=== PATIENT | female | born 1945 | race Caucasian/White ===

== ENCOUNTER 2016-07-01 13:01 | Inpatient (IN) | payer MEDICARE, BC ==
[2016-07-01] VITALS (8 sets, daily range): BP systolic 127–151; BP diastolic 63–78; PULSE 70–187; RESP 16–18; TEMP 97.6–97.8; O2SAT 99–100
[~2016-07-01] VITALS: Ht 152.4 cm; Wt 49.4 kg
[2016-07-01] MEDS ORDERED: METOPROLOL TARTRATE 5 MG/5 ML VIAL IV PUSH ONE (13:15)
[2016-07-01] MEDS ORDERED: SODIUM CHLOR 0.9% 1000 ML INJ 1,000 ML IV ONE (13:30)
[2016-07-01] MEDS ORDERED: METOPROLOL TARTRATE 50 MG TAB PO ONE (13:30)
--- NOTE | 2016-07-01 13:49 | RADRPT ---
EXAM DATE/TIME: 07/01/2016 13:18 [facility] COMPARISON: No previous studies available for comparison. INDICATIONS : Chest pain. MEDICAL HISTORY : Chronic obstructive pulmonary disease. Congestive heart failure. SURGICAL HISTORY : Left lung mass surgery, not sure if it was cancer. ENCOUNTER: Initial ACUITY: 1 day PAIN SCORE: 10/10 LOCATION: Bilateral chest FINDINGS: Scoliosis and Allen rods are noted. The left lung is clear. Consolidative changes and pleural effusion are seen on the right. Cardiac silhouette is obscured. Abnormal chest, CT scan may be of benefit. CONCLUSION: Abnormal chest as described above. Jaspreet Marroquin MD FACR on July 01, 2016 at 13:30 Board Certified Radiologist. This report was verified electronically.
[2016-07-01 14:09] LABS: AUTOMATED NEUTROPHIL # 7.5 TH/MM3 (1.8-7.7); BASOPHIL % 0.3 % (0.0-2.0); EOSINOPHIL # 0.1 TH/MM3 (0-0.4); EOSINOPHIL % 0.6 % (0.0-4.0); HEMATOCRIT 41.8 % (35.0-46.0); HEMO FLAGS DIFF FINAL; LYMPH % 6.1 % (9.0-44.0); LYMPHOCYTE # 0.5 TH/MM3 (1.0-4.8); MEAN CELL VOLUME 87.9 FL (80.0-100.0); MEAN CORPUSCULAR HEMOGLOBIN 27.9 PG (27.0-34.0); MEAN CORPUSCULAR HGB CONC 31.7 % (32.0-36.0); MONO % 5.5 % (0.0-8.0); NEUT % 87.5 % (16.0-70.0); PLATELET COUNT 211 TH/MM3 (150-450); RED BLOOD COUNT 4.75 MIL/MM3 (4.00-5.30); RED CELL DISTRIBUTION WIDTH 16.7 % (11.6-17.2); WHITE BLOOD COUNT 8.5 TH/MM3 (4.0-11.0)
[2016-07-01 14:23] LABS: APTT (PATIENT) 23.8 SEC (24.3-30.1)
[2016-07-01 14:33] LABS: ANION GAP 10 MEQ/L (5-15); BICARBONATE 29.1 MEQ/L (21.0-32.0); BLOOD UREA NITROGEN 14 MG/DL (7-18); CHLORIDE 102 MEQ/L (98-107); GLOMERULAR FILTRATION RATE 116 ML/MIN (>89); MAGNESIUM 1.8 MG/DL (1.5-2.5); POTASSIUM 3.8 MEQ/L (3.5-5.1); SODIUM (NA) 141 MEQ/L (136-145)
[2016-07-01 14:36] LABS: CREATINE KINASE 131 U/L (26-192)
[2016-07-01 14:48] LABS: CKMB 5.2 NG/ML (0.5-3.6)
--- NOTE | 2016-07-01 15:36 | PD ---
HPI Chief Complaint: Cardiac Complaint Time Seen by Provider: 13:08 Travel History International Travel<30 days: No Contact w/Intl Traveler<30days: No Traveled to known affect area: No History of Present Illness HPI 70-year-old female came to the emergency room with history of chest pain that woke her up this morning. Chest pain continued and patient called EMS. When they arrived her heart rate was in 190s to 200. They identified her as in SVT and gave her 6 mg of adenosine followed by 12. This slowed the heart rate down to the 160 and at this point the rhythm seemed to be A. fib with RVR. She was given 20 mg of Cardizem just before they were pulling in. When patient arrived her heart rate was in 150s to 160s. She looked anxious and in distress. Complained of her chest hurting on the left side with no radiation. She has history of coronary artery disease and stents put in. Her last stent was about 6-7 years ago. A financial adviser and primary care are from out of town. Blood pressure was within normal range. Patient has history of atrial fibrillation and she is on Xarelto. [facility] Past Medical History Narrative Medical List of her past medical, surgical, social and family history was reviewed from the nursing note. Hx Anticoagulant Therapy: Yes Heart Rhythm Problems: Yes (ATRIAL FIB) Cardiac Catheterization: Yes (STENT X2) Cardiovascular Problems: Yes (AFIB) Hypertension: Yes Musculoskeletal: Yes (SCOLIOSIS) Past Surgical History Hysterectomy: Yes Social History Alcohol Use: No Tobacco Use: No Substance Use: No Allergies-Medications (Allergen,Severity, Reaction): Coded Allergies: Penicillin (Verified Allergy, Severe, 07/01/16) Comments List of her allergies reviewed from the nursing note. Reported Meds & Prescriptions Reported Meds & Active Scripts Active Reported Calcium (Hydrocodone-Acetaminophen) 5-325 mg Tab 1 Tab PO TID Lisinopril 20 Mg Tab 20 Mg PO DAILY Xarelto (Rivaroxaban) 20 Mg Tab 20 Mg PO DAILY Duragesic Patch 72 HR (Fentanyl) 75 Mcg/Hr Patch 75 Mcg T-DERMAL Q48HR Remove old patch when new one placed. Narrative Medication Awaiting for the nurse to do the med reconciliation. Review of Systems Except as stated in HPI: all other systems reviewed are Neg Physical Exam Narrative GENERAL: Awake, alert, anxious, looks older than her age, moderate distress SKIN: Focused skin assessment warm/dry. HEAD: Atraumatic. Normocephalic. EYES: Pupils equal and round. No scleral icterus. No injection or drainage. ENT: No nasal bleeding or discharge. Mucous membranes pink and moist. NECK: Trachea midline. No JVD. CARDIOVASCULAR: Irregularly irregular rhythm with tachycardia. No murmur appreciated. RESPIRATORY: No accessory muscle use. Clear to auscultation. Breath sounds equal bilaterally. GASTROINTESTINAL: Abdomen soft, non-tender, nondistended. Hepatic and splenic margins not palpable. MUSCULOSKELETAL: No obvious deformities. No clubbing. No cyanosis. No edema. NEUROLOGICAL: Awake and alert. No obvious cranial nerve deficits. Motor grossly within normal limits. Normal speech. PSYCHIATRIC: Appropriate mood and affect; insight and judgment normal. Data Data Last Documented VS Vital Signs Date Time Temp Pulse Resp B/P Pulse Ox O2 Delivery O2 Flow Rate FiO2 07/01/16 15:14 77 16 151/77 100 Room Air 07/01/16 13:05 97.6 Orders Electrocardiogram (07/01/16 13:09) Basic Metabolic Panel (Bmp) (07/01/16 13:09) Ckmb (Isoenzyme) Profile (07/01/16 13:09) Complete Blood Count With Diff (07/01/16 13:09) Magnesium (Mg) (07/01/16 13:09) Prothrombin Time / Inr (Pt) (07/01/16 13:09) Act Partial Throm Time (Ptt) (07/01/16 13:09) Troponin I (07/01/16 13:09) Chest, Single Ap (07/01/16 13:09) Ecg Monitoring (07/01/16 13:09) Bilateral Bp Monitoring (07/01/16 13:09) Iv Access Insert/Monitor (07/01/16 13:09) Oximetry (07/01/16 13:09) Oxygen Administration (07/01/16 13:09) Metoprolol Tartrate Inj (Lopressor Inj) (07/01/16 13:15) Sodium Chlor 0.9% 1000 Ml Inj (Ns 1000 M (07/01/16 13:30) Electrocardiogram (07/01/16 ) Metoprolol Tartrate (Lopressor) (07/01/16 13:30) CKMB (07/01/16 13:50) CKMB% (07/01/16 13:50) Ceftriaxone Inj (Rocephin Inj) (07/01/16 17:00) Azithromycin Inj (Zithromax Inj) (07/01/16 16:00) Ct Thorax/ Chest Wo Iv Contras (07/01/16 ) Admit Order (Ed Use Only) (07/01/16 15:41) Admit To Inpatient (07/01/16 ) Code Status (07/01/16 15:40) Vital Signs (Adult) Q4H (07/01/16 15:40) Activity Oob Ad Zuleika (07/01/16 15:40) Bedside Glucose BELTRAN.AC&HS (07/01/16 15:40) Safety Analyst / Telemetry .CONTINUOUS (07/01/16 15:40) Intake + Output BELTRAN.QSHIFT (07/01/16 15:40) ^ Notify Dr: Other (07/01/16 15:40) Diet Heart Healthy (07/01/16 Dinner) Sodium Chlor 0.9% 1000 Ml Inj (Ns 1000 M (07/01/16 16:00) Sodium Chloride 0.9% Flush (Ns Flush) (07/01/16 15:45) Sodium Chloride 0.9% Flush (Ns Flush) (07/01/16 21:00) Acetaminophen (Tylenol) (07/01/16 15:45) Ondansetron Inj (Zofran Inj) (07/01/16 15:45) Bisacodyl Supp (Dulcolax Supp) (07/01/16 15:45) Docusate Sodium (Colace) (07/01/16 18:00) Basic Metabolic Panel (Bmp) (07/02/16 06:00) Complete Blood Count With Diff (07/02/16 06:00) Creatine Kinase (Cpk) (07/01/16 15:40) Troponin I (07/01/16 15:40) Prothrombin Time / Inr (Pt) (07/02/16 06:00) Urinalysis - C+S If Indicated (07/01/16 15:40) Lipase (07/02/16 06:00) Hepatic Functional Panel (07/02/16 06:00) Resp Oxygen Vladimir C Titrat 1-4 L (07/01/16 ) Pt Request For Service (07/01/16 15:40) Case Management Consult (07/01/16 15:40) Enoxaparin Inj (Lovenox Inj) (07/01/16 16:00) Naloxone Inj (Narcan Inj) (07/01/16 15:45) Inpatient Certification (07/01/16 ) Labs Laboratory Tests Test 07/01/16 13:50 White Blood Count 8.5 TH/MM3 Red Blood Count 4.75 MIL/MM3 Hemoglobin 13.3 GM/DL Hematocrit 41.8 % Mean Corpuscular Volume 87.9 FL Mean Corpuscular Hemoglobin 27.9 PG Mean Corpuscular Hemoglobin 31.7 % Concent Red Cell Distribution Width 16.7 % Platelet Count 211 TH/MM3 Mean Platelet Volume 8.7 FL Neutrophils (%) (Auto) 87.5 % Lymphocytes (%) (Auto) 6.1 % Monocytes (%) (Auto) 5.5 % Eosinophils (%) (Auto) 0.6 % Basophils (%) (Auto) 0.3 % Neutrophils # (Auto) 7.5 TH/MM3 Lymphocytes # (Auto) 0.5 TH/MM3 Monocytes # (Auto) 0.5 TH/MM3 Eosinophils # (Auto) 0.1 TH/MM3 Basophils # (Auto) 0.0 TH/MM3 CBC Comment DIFF FINAL Differential Comment Prothrombin Time 11.0 SEC Prothromb Time International 1.0 RATIO Ratio Activated Partial 23.8 SEC Thromboplast Time Sodium Level 141 MEQ/L Potassium Level 3.8 MEQ/L Chloride Level 102 MEQ/L Carbon Dioxide Level 29.1 MEQ/L Anion Gap 10 MEQ/L Blood Urea Nitrogen 14 MG/DL Creatinine 0.52 MG/DL Estimat Glomerular Filtration 116 ML/MIN Rate Random Glucose 109 MG/DL Calcium Level 9.3 MG/DL Magnesium Level 1.8 MG/DL Total Creatine Kinase 131 U/L Creatine Kinase MB 5.2 NG/ML Troponin I LESS THAN 0.02 NG/ML MDM Medical Decision Making Medical Screen Exam Complete: Yes Emergency Medical Condition: Yes Medical Record Reviewed: Yes Interpretation(s) Twelve-lead EKG was reviewed by me. No complex tachycardia. A. fib with RVR. Right axis deviation, ST depression probably related to the rate, LVH. Heart rate of 186 bpm. Differential Diagnosis SVT, A. fib with RVR, ACS Narrative Course 3:30 PM blood test results of back and within acceptable limit. Patient was given 5 mg of Lopressor IV which converted her rhythm to normal sinus and slowed her down to 84 bpm. Repeat EKG showed normal sinus rhythm with right axis deviation with LVH, old lateral [place]. Heart rate of 84 bpm. I will admit her to the chest pain center at this point to rule out ACS and the troponin is negative. 3:42 PM chest x-ray was suggestive of left-sided pleural effusion versus consolidation and the radiologist recommended a CT scan. I have ordered the CT scan but I would prefer her to be admitted to the medical floor. Hospitalist has accepted the patient. Critical Care Narrative Aggregate critical care time was 45 minutes. Time to perform other separately billable procedures was not included in the critical care time. My time did not include minutes spent treating any other patients simultaneously or on activities that did not directly contribute to the patient's treatment. The services I provided to this patient were to treat and/or prevent clinically significant deterioration that could result in: A. fib with RVR, chest pain, chemical cardioversion I provided critical care services requiring my management, as noted below: Chart data review, documentation time, medication orders and management, vital sign assessments/reviewing monitor data, ordering and reviewing lab tests, ordering and interpreting/reviewing x-rays and diagnostic studies, care of the patient and discussion of the patient with the admitting physicians. Procedures EKG Prior to Arrival: Yes Diagnosis Primary Impression: Atrial fibrillation with RVR Additional Impression: Chest pain Qualified Code: R07.9 - Chest pain, unspecified type Admitting Information Admitting Physician Requests: Tad Simon MD Jul 01, 2016 15:36
[2016-07-01] MEDS ORDERED: SODIUM CHLORIDE 0.9% FLUSH 10 ML FLUSH IV FLUSH PRN (15:45)
[2016-07-01] MEDS ORDERED: BISACODYL 10 MG SUPP RECTAL PRN (15:45)
[2016-07-01] MEDS ORDERED: ACETAMINOPHEN 325 MG TAB PO PRN (15:45)
[2016-07-01] MEDS ORDERED: NALOXONE HCL 0.4 MG/ML AMP IV PRN (15:45)
--- NOTE | 2016-07-01 15:56 | HHI.HP ---
[facility] Non-Staff Admission Diagnosis A. skye with RVR, pleural effusion Diagnoses: Chief Complaint: Atypical Chest pain Travel History International Travel<30 Days: No Contact w/Intl Traveler <30 Da: No Traveled to Known Affected Are: No History of Present Illness This is a pleasant 70 y/o Female who came to ER brought in by EMS after the patient complaint of Atypical chest pain, she woke up in the morning because did not improved she called EMS, When they arrived her heart rate was in 190s to 200. They identified her as in SVT and gave her 6 mg of adenosine followed by 12. This slowed the heart rate down to the 160 and at this point The rhythm showed Atrial Fibrillation with RVR given Cardizem 20 mg IV the patient continue with heart rate in 150s associated Anxiety and distressed, Complained of her chest hurting on the left side with no radiation. has CAD status post PCI and Stent placement x 2, history of Atrial Fibrillation, Her last stent was about 6-7 years ago. She is on Xarelto. as per patient she started with Chest pain when she woke up the pain was Precordial pain, 9/10 in intensity, radiated to the posterior area of the head, lasted for 5 to 10 minutes but did not improved totally. at this time asymptomatic. seen in the presence of female nurse in Emergency Room. Review of Systems Cardiovascular: COMPLAINS OF: Chest pain Past Family Social History Past Medical History CAD status post PCI and Stent placement x 2. Atrial Fibrillation Hypertension OA. Chronic anticoagulation Past Surgical History ADEBAYO Spinal surgery Cholecystectomy PCI and Stent placement x 2 Reported Medications Reported Meds & Active Scripts Active Reported Hanna (Hydrocodone-Acetaminophen) 5-325 mg Tab 1 Tab PO TID Lisinopril 20 Mg Tab 20 Mg PO DAILY Xarelto (Rivaroxaban) 20 Mg Tab 20 Mg PO DAILY Duragesic Patch 72 HR (Fentanyl) 75 Mcg/Hr Patch 75 Mcg T-DERMAL Q48HR Remove old patch when new one placed. Allergies: Coded Allergies: Penicillin (Verified Allergy, Severe, 07/01/16) Active Ordered Medications Current Medications Medications (Trade) Dose Ordered Sig/Reji Route Start Time Stop Time Status Last Admin Ceftriaxone Sodium 1000 mg/ Sodium Chloride 100 ml @ 200 mls/hr Q24H IV 07/01/16 17:00 Azithromycin 500 mg/Sodium Chloride 250 ml @ 250 mls/hr Q24H IV 07/01/16 16:00 07/01/16 16:00 (NS 1000 ml Inj) 1,000 ml @ 75 mls/hr [id number] IV 07/01/16 16:00 07/01/16 16:00 (NS Flush) 2 ml UNSCH PRN IV FLUSH 07/01/16 15:45 (NS Flush) 2 ml BID IV FLUSH 07/01/16 21:00 (Tylenol) 650 mg Q4H PRN PO 07/01/16 15:45 (Zofran Inj) 4 mg Q6H PRN IVP 07/01/16 15:45 (Dulcolax Supp) 10 mg DAILY PRN RECTAL 07/01/16 15:45 (Colace) 100 mg Q12H PO 07/01/16 18:00 (Narcan Inj) 0.4 mg UNSCH PRN IV 07/01/16 15:45 (Duragesic 75 Mcg Patch.72 Hr) 1 patch Q72H T-DERMAL 07/01/16 18:00 (Prinivil) 20 mg DAILY PO 07/02/16 09:00 (Xarelto) 20 mg DAILY PO 07/02/16 09:00 (Mucinex Er) 600 mg BID PO 07/01/16 21:00 Family History Mother with Hypertension and CAD Father with Stroke at young age. Social History Lives in [facility] with her Daughter and Granddaughter Denies any toxic habit. Physical Exam Vital Signs Vital Signs Date Time Temp Pulse Resp B/P Pulse Ox O2 Delivery O2 Flow Rate FiO2 07/01/16 15:14 77 16 151/77 100 Room Air 07/01/16 13:37 18 100 Room Air 07/01/16 13:37 100 Room Air 07/01/16 13:05 97.6 187 18 127/72 100 Physical Exam GENERAL: Awake, alert, anxious, looks older than her age, moderate distress SKIN: Focused skin assessment warm/dry. HEAD: Atraumatic. Normocephalic. EYES: Pupils equal and round. No scleral icterus. No injection or drainage. ENT: No nasal bleeding or discharge. Mucous membranes pink and moist. NECK: Trachea midline. No JVD. CARDIOVASCULAR: Irregularly irregular rhythm with tachycardia. Diastolic murmur on Pulmonary valve RESPIRATORY: No accessory muscle use. Clear to auscultation. Breath sounds equal bilaterally. GASTROINTESTINAL: Abdomen soft, non-tender, nondistended. Hepatic and splenic margins not palpable. MUSCULOSKELETAL: No obvious deformities. No clubbing. No cyanosis. No edema. NEUROLOGICAL: Awake and alert. No obvious cranial nerve deficits. Motor grossly within normal limits. Normal speech. PSYCHIATRIC: Appropriate mood and affect; insight and judgment normal. Laboratory Laboratory Tests Test 07/01/16 13:50 White Blood Count 8.5 Red Blood Count 4.75 Hemoglobin 13.3 Hematocrit 41.8 Mean Corpuscular Volume 87.9 Mean Corpuscular Hemoglobin 27.9 Mean Corpuscular Hemoglobin 31.7 Concent Red Cell Distribution Width 16.7 Platelet Count 211 Mean Platelet Volume 8.7 Neutrophils (%) (Auto) 87.5 Lymphocytes (%) (Auto) 6.1 Monocytes (%) (Auto) 5.5 Eosinophils (%) (Auto) 0.6 Basophils (%) (Auto) 0.3 Neutrophils # (Auto) 7.5 Lymphocytes # (Auto) 0.5 Monocytes # (Auto) 0.5 Eosinophils # (Auto) 0.1 Basophils # (Auto) 0.0 CBC Comment DIFF FINAL Differential Comment Prothrombin Time 11.0 Prothromb Time International 1.0 Ratio Activated Partial 23.8 Thromboplast Time Sodium Level 141 Potassium Level 3.8 Chloride Level 102 Carbon Dioxide Level 29.1 Anion Gap 10 Blood Urea Nitrogen 14 Creatinine 0.52 Estimat Glomerular Filtration 116 Rate Random Glucose 109 Calcium Level 9.3 Magnesium Level 1.8 Total Creatine Kinase 131 Creatine Kinase MB 5.2 Troponin I LESS THAN 0.02 Result Diagram: 07/01/16 1350 07/01/16 1350 Imaging Last Impressions Chest CT 07/01/16 0000 Signed Impressions: Service Date/Time: Friday, July 01, 2016 16:33 - CONCLUSION: 1. There is pleural thickening and consolidation in the left apex which is probably on a chronic basis. I would recommend this patient undergo a CT scan in 6 months to ensure stability. 2. Severe rotatory scoliosis. Uri Marroquin MD Assessment and Plan Assessment and Plan 1. Atrial Fibrillation with RVR converted to sinus rhythm with Metoprolol IV then started by mouth, EKG showed normal sinus rhythm with right axis deviation with LVH, old lateral [place]. Heart rate of 84 bpm. recommended to be admitted to Cardiac floor and follow. asked for Echocardiogram. 2. Pneumonia and Pleural effusions on the left side started on Ceftriaxone and Azithromycin and followed by Emergency medicine specialist with CT Chest as recommended by chief specialist leed. 3. CAD status post PCI and Stent placement x 2. 4. Hypertension continue home medicines 5. OA. 6. Chronic anticoagulation 7.. Pneumonia probable lung consolidation on CT probable chronic will continue present care and follow her No signs of infection will continue antibiotics by now and follow DVT prophylaxis Xarelto As Always a pleasure to talk about this case with Emergency Medicine Specialist doctor Tad Brown her Input and recommendations Highly appreciated. Code Status Full Code. Discussed Condition With Patient and ER specialist. Physician Certification 2 Midnight Certification Type: Admission for Inpatient Services Order for Inpatient Services The services are ordered in accordance with Medicare regulations or non- Medicare payer requirements, as applicable. In the case of services not specified as inpatient-only, they are appropriately provided as inpatient services in accordance with the 2-midnight benchmark. Estimated LOS (days): 3 days is the estimated time the patient will need to remain in the hospital, assuming treatment plan goals are met and no additional complications. Post-Hospital Plan: Home Ismael Sumner MD Jul 01, 2016 15:56
[2016-07-01] MEDS ORDERED: ENOXAPARIN SODIUM 40 MG/0.4 ML SYRINGE SQ SCH (16:00)
[2016-07-01] MEDS: SODIUM CHLOR 0.9% 1000 ML INJ 1,000 ML IV SCH (16:00)
[2016-07-01] MEDS ORDERED: ACETAMINOPHEN 325 MG TAB PO ONE (16:00)
[2016-07-01] MEDS: AZITHROMYCIN INJ 500 MG in SODIUM CHLOR 0.9% 250 ML INJ 250 ML IV SCH (16:00)
[2016-07-01] MEDS ORDERED: FENT75T T-DERMAL (16:06)
[2016-07-01] MEDS ORDERED: NORC5TAB PO (16:06)
[2016-07-01] MEDS ORDERED: LISI-515 PO (16:06)
[2016-07-01] MEDS ORDERED: XARE20TA PO (16:06)
--- NOTE | 2016-07-01 16:45 | RADRPT ---
EXAM DATE/TIME: 07/01/2016 16:33 [facility] COMPARISON: No previous studies available for comparison. INDICATIONS : Abnormal chest x-ray. RADIATION DOSE: 4.61 CTDIvol (mGy) MEDICAL HISTORY : Hypertension. Atrial Fib. SURGICAL HISTORY : None. ENCOUNTER: Initial ACUITY: 1 day PAIN SCALE: 6/10 LOCATION: chest TECHNIQUE: Volumetric scanning of the chest was performed. Using automated exposure control and adjustment of t he mA and/or kV according to patient size, radiation dose was kept as low as reasonably achievable to obtain optimal diagnostic quality images. FINDINGS: The examination demonstrates a severe rotatory scoliosis. There are Allen rods in place. The right lung is clear. Examination of the left lung demonstrates pleural thickening and consolidation in the left lung apex. Followup CT imaging in 6 months to confirm stability is warranted. The lower lobe is clear. No signi ficant hilar or mediastinal adenopathy is seen. The upper abdomen is unremarkable. CONCLUSION: 1. There is pleural thickening and consolidation in the left apex which is probably on a chronic basi s. I would recommend this patient undergo a CT scan in 6 months to ensure stability. 2. Severe rotatory scoliosis. Uri Marroquin MD on July 01, 2016 at 16:42 Board Certified Radiologist. This report was verified electronically.
[2016-07-01] MEDS ORDERED: cloNIDine HCL 0.1 MG TAB PO ONE (18:00)
[2016-07-01] MEDS: DOCUSATE SODIUM 100 MG CAP PO SCH (18:38)
[2016-07-01] MEDS: cefTRIAXone INJ 1,000 MG in SODIUM CHLORIDE 0.9% INJ 100 ML IV SCH (18:38)
[2016-07-01] MEDS: ACETAMINOPHEN/HYDROcodone 325 MG/5 MG TAB PO PRN ×2 (19:00→22:55)
[2016-07-01] MEDS: guaiFENesin E.R. 600 MG TAB PO SCH (20:38)
[2016-07-01] MEDS: fentaNYL 75 MCG/HR PATCH T-DERMAL SCH (20:38)
[2016-07-01] MEDS: SODIUM CHLORIDE 0.9% FLUSH 10 ML FLUSH IV FLUSH SCH (20:38)
[2016-07-01] MEDS: RESP: ALBUTEROL 2.5 MG/IPRATROPIUM 0.5 MG NEB (SCH) NEB ×2 (20:53→23:30)
[2016-07-02] VITALS (11 sets, daily range): BP systolic 115–161; BP diastolic 59–74; PULSE 79–91; RESP 14–20; TEMP 97.5–98.3; O2SAT 93–98
[2016-07-02] MEDS: RESP: ALBUTEROL 2.5 MG/IPRATROPIUM 0.5 MG NEB (SCH) NEB ×5 (03:38→20:45)
[2016-07-02 03:56] LABS: AUTOMATED NEUTROPHIL # 3.8 TH/MM3 (1.8-7.7); BASOPHIL % 0.3 % (0.0-2.0); EOSINOPHIL # 0.1 TH/MM3 (0-0.4); EOSINOPHIL % 2.8 % (0.0-4.0); HEMATOCRIT 34.4 % (35.0-46.0); HEMO FLAGS DIFF FINAL; LYMPH % 14.4 % (9.0-44.0); LYMPHOCYTE # 0.8 TH/MM3 (1.0-4.8); MEAN CELL VOLUME 87.8 FL (80.0-100.0); MEAN CORPUSCULAR HEMOGLOBIN 28.3 PG (27.0-34.0); MEAN CORPUSCULAR HGB CONC 32.2 % (32.0-36.0); MONO % 10.6 % (0.0-8.0); NEUT % 71.9 % (16.0-70.0); PLATELET COUNT 194 TH/MM3 (150-450); RED BLOOD COUNT 3.92 MIL/MM3 (4.00-5.30); RED CELL DISTRIBUTION WIDTH 16.7 % (11.6-17.2); WHITE BLOOD COUNT 5.2 TH/MM3 (4.0-11.0)
[2016-07-02] MEDS: ACETAMINOPHEN/HYDROcodone 325 MG/5 MG TAB PO PRN ×3 (03:59→13:35)
[2016-07-02 04:08] LABS: PROTHROMBIN TIME - PATIENT 11.4 SEC (9.8-11.6)
[2016-07-02 04:27] LABS: BICARBONATE 28.6 MEQ/L (21.0-32.0); INDIRECT BILIRUBIN 0.3 MG/DL (0.0-0.8); POTASSIUM 3.4 MEQ/L (3.5-5.1); TOTAL BILIRUBIN ADULT 0.4 MG/DL (0.2-1.0)
[2016-07-02] MEDS: DOCUSATE SODIUM 100 MG CAP PO SCH ×2 (04:58→16:52)
[2016-07-02] MEDS: SODIUM CHLOR 0.9% 1000 ML INJ 1,000 ML IV SCH ×2 (05:01→20:20)
--- NOTE | 2016-07-02 08:27 | HHI.PR ---
Subjective Remarks This is a pleasant 70 y/o Female who came to ER brought in by EMS after the patient complaint of Atypical chest pain, she woke up in the morning because did not improved she called EMS, When they arrived her heart rate was in 190s to 200. They identified her as in SVT and gave her 6 mg of adenosine followed by 12. This slowed the heart rate down to the 160 and at this point The rhythm showed Atrial Fibrillation with RVR given Cardizem 20 mg IV the patient continue with heart rate in 150s associated Anxiety and distressed, Complained of her chest hurting on the left side with no radiation. has CAD status post PCI and Stent placement x 2, history of Atrial Fibrillation, Her last stent was about 6-7 years ago. She is on Xarelto. as per patient she started with Chest pain when she woke up the pain was Precordial pain, 9/10 in intensity, radiated to the posterior area of the head, lasted for 5 to 10 minutes but did not improved totally. 07/02: Seen in her bedroom, denies Chest pain, has some Nausea probable secondary to Pain medicine or Potassium but the patient states she has Nausea at home most of the time. No diarrhea or vomit Objective Vital Signs Date Time Temp Pulse Resp B/P Pulse Ox O2 Delivery O2 Flow Rate FiO2 07/02/16 08:03 93 21 07/02/16 04:00 98.1 79 18 115/63 96 07/02/16 00:00 97.5 81 20 161/74 94 07/01/16 21:00 Room Air 07/01/16 20:01 86 07/01/16 20:00 Nasal Cannula 2.00 07/01/16 20:00 97.7 74 18 142/78 99 07/01/16 19:43 Room Air 2.00 Nasal Cannula 07/01/16 18:37 73 07/01/16 18:27 97.8 73 18 146/63 100 07/01/16 17:31 70 16 143/75 100 Room Air 07/01/16 15:14 77 16 151/77 100 Room Air 07/01/16 13:37 18 100 Room Air 07/01/16 13:37 100 Room Air 07/01/16 13:05 97.6 187 18 127/72 100 I/O 07/01/16 07/01/16 07/01/16 07/02/164/17 4/4/17 07:00 15:00 23:00 07:00 15:00 23:00 Intake Total 683 ml 631 ml Balance 683 ml 631 ml Intake Oral 240 ml 0 ml IV Total 443 ml 631 ml # Voids 1 0 # Bowel Movements 1 0 Result Diagram: 07/02/16 0316 07/02/16 0316 Imaging Last Impressions Chest X-Ray 07/01/16 1309 Signed Impressions: Service Date/Time: Friday, July 01, 2016 13:18 - CONCLUSION: Abnormal chest as described above. Jaspreet Marroquin MD FACR Chest CT 07/01/16 0000 Signed Impressions: Service Date/Time: Friday, July 01, 2016 16:33 - CONCLUSION: 1. There is pleural thickening and consolidation in the left apex which is probably on a chronic basis. I would recommend this patient undergo a CT scan in 6 months to ensure stability. 2. Severe rotatory scoliosis. Uri Marroquin MD Procedures No procedures performed. Other Results Laboratory Tests Test 07/01/16 07/02/16 13:50 03:16 Activated Partial 23.8 SEC Thromboplast Time Magnesium Level 1.8 MG/DL Creatine Kinase MB 5.2 NG/ML White Blood Count 5.2 TH/MM3 Red Blood Count 3.92 MIL/MM3 Hemoglobin 11.1 GM/DL Hematocrit 34.4 % Mean Corpuscular Volume 87.8 FL Mean Corpuscular Hemoglobin 28.3 PG Mean Corpuscular Hemoglobin 32.2 % Concent Red Cell Distribution Width 16.7 % Platelet Count 194 TH/MM3 Mean Platelet Volume 8.3 FL Neutrophils (%) (Auto) 71.9 % Lymphocytes (%) (Auto) 14.4 % Monocytes (%) (Auto) 10.6 % Eosinophils (%) (Auto) 2.8 % Basophils (%) (Auto) 0.3 % Neutrophils # (Auto) 3.8 TH/MM3 Lymphocytes # (Auto) 0.8 TH/MM3 Monocytes # (Auto) 0.6 TH/MM3 Eosinophils # (Auto) 0.1 TH/MM3 Basophils # (Auto) 0.0 TH/MM3 CBC Comment DIFF FINAL Differential Comment Prothrombin Time 11.4 SEC Prothromb Time International 1.0 RATIO Ratio Sodium Level 144 MEQ/L Potassium Level 3.4 MEQ/L Chloride Level 108 MEQ/L Carbon Dioxide Level 28.6 MEQ/L Anion Gap 7 MEQ/L Blood Urea Nitrogen 16 MG/DL Creatinine 0.49 MG/DL Estimat Glomerular Filtration 124 ML/MIN Rate Random Glucose 90 MG/DL Calcium Level 8.4 MG/DL Total Bilirubin 0.4 MG/DL Direct Bilirubin 0.1 MG/DL Indirect Bilirubin 0.3 MG/DL Aspartate Amino Transf 11 U/L (AST/SGOT) Alanine Aminotransferase 13 U/L (ALT/SGPT) Alkaline Phosphatase 63 U/L Total Creatine Kinase 71 U/L Troponin I 0.12 NG/ML Total Protein 5.7 GM/DL Albumin 3.0 GM/DL Lipase 161 U/L Objective Remarks GENERAL: Awake, alert, No distress at this time. SKIN: Focused skin assessment warm/dry. HEAD: Atraumatic. Normocephalic. EYES: Pupils equal and round. No scleral icterus. No injection or drainage. ENT: No nasal bleeding or discharge. Mucous membranes pink and moist. NECK: Trachea midline. No JVD. CARDIOVASCULAR: Irregularly irregular rhythm. Systolic murmur on Pulmonary valve RESPIRATORY: No accessory muscle use. Clear to auscultation. Breath sounds equal bilaterally. GASTROINTESTINAL: Abdomen soft, non-tender, nondistended. Hepatic and splenic margins not palpable. MUSCULOSKELETAL: No obvious deformities. No clubbing. No cyanosis. No edema. NEUROLOGICAL: Awake and alert. No obvious cranial nerve deficits. Motor grossly within normal limits. Normal speech. PSYCHIATRIC: Appropriate mood and affect; insight and judgment normal. Medications and IVs Current Medications Medications (Trade) Dose Ordered Sig/Reji Route Start Time Stop Time Status Last Admin Ceftriaxone Sodium 1000 mg/ Sodium Chloride 100 ml @ 200 mls/hr Q24H IV 07/01/16 17:00 07/01/16 18:38 Azithromycin 500 mg/Sodium Chloride 250 ml @ 250 mls/hr Q24H IV 07/01/16 16:00 07/01/16 16:00 (NS 1000 ml Inj) 1,000 ml @ 75 mls/hr [id number] IV 07/01/16 16:00 07/02/16 05:01 (NS Flush) 2 ml UNSCH PRN IV FLUSH 07/01/16 15:45 (NS Flush) 2 ml BID IV FLUSH 07/01/16 21:00 07/01/16 20:38 (Tylenol) 650 mg Q4H PRN PO 07/01/16 15:45 (Zofran Inj) 4 mg Q6H PRN IVP 07/01/16 15:45 (Dulcolax Supp) 10 mg DAILY PRN RECTAL 07/01/16 15:45 (Colace) 100 mg Q12H PO 07/01/16 18:00 07/02/16 04:58 (Narcan Inj) 0.4 mg UNSCH PRN IV 07/01/16 15:45 (Duragesic 75 Mcg Patch.72 Hr) 1 patch Q72H T-DERMAL 07/01/16 18:00 07/01/16 20:38 (Prinivil) 20 mg DAILY PO 07/02/16 09:00 (Xarelto) 20 mg DAILY PO 07/02/16 09:00 (Mucinex Er) 600 mg BID PO 07/01/16 21:00 07/01/16 20:38 ([place] 5-325 Mg) 1 tab Q4H PRN PO 07/01/16 18:15 07/02/16 03:59 A/P Assessment and Plan 1. Atrial Fibrillation with RVR converted to sinus rhythm with Metoprolol IV then started by mouth, EKG showed normal sinus rhythm with right axis deviation with LVH, old lateral PA. Heart rate of 84 bpm at this time stable in sinus rhythm, Troponin elevation awaiting for Echocardiogram result also for Cardiology consult, this mild elevation in Troponin may be related to her Atrial Fibrillation with RVR from yesterday but may need Stress test by docket specialist will follow recommendations. continue present care. 2. Pneumonia and Pleural effusions on the left side started on Ceftriaxone and Azithromycin and followed by Emergency medicine specialist with CT Chest as recommended by coding compliance specialist. continue antibiotics at this time by now. 3. CAD status post PCI and Stent placement x 2. 4. Hypertension continue home medicines, mild uncontrol just received her anti- Hypertensives. 5. OA. 6. Chronic anticoagulation 7.. Pneumonia probable lung consolidation on CT probable chronic will continue present care and follow her No signs of infection will continue antibiotics by now and follow 8. Electrolyte derangement replaced and following. DVT prophylaxis Xarelto As Always a pleasure to talk about this case with Emergency Medicine Specialist doctor Tad Brown her Input and recommendations Highly appreciated. Code Status Full Code. Discharge Planning Expected in one to two days. Ismael Sumner MD Jul 02, 2016 08:27
[2016-07-02] MEDS ORDERED: POTASSIUM CHLORIDE 20 MEQ CONTROLLED RELEASE TAB PO ONE (08:30)
[2016-07-02] MEDS: RIVAROXABAN 20 MG TAB PO SCH (08:52)
[2016-07-02] MEDS: guaiFENesin E.R. 600 MG TAB PO SCH ×2 (08:52→20:23)
[2016-07-02] MEDS: LISINOPRIL 20 MG TAB PO SCH (08:52)
[2016-07-02] MEDS: SODIUM CHLORIDE 0.9% FLUSH 10 ML FLUSH IV FLUSH SCH ×2 (09:00→20:23)
[2016-07-02] MEDS: MAGNESIUM SULFATE 1 GM PREMIX 100 ML IV SCH ×2 (09:03→10:28)
--- NOTE | 2016-07-02 10:50 | EKG ---
Date Performed: 07/01/2016 Time Performed: 13:07:29 PTAGE: 70 years EKG: ATRIAL FIBRILLATION WITH RAPID VENTRICULAR RESPONSE MARKED RIGHT AXIS DEVIATION VOLTAGE CRI TERIA FOR LVH MARKED ST DEPRESSION, CONSIDER SUBENDOCARDIAL INJURY No prior for comparison. ABNORMAL ECG NO PREVIOUS TRACING DOCTOR: Dee Almanzar Interpretating Date/Time 07/02/2016 10:45:35
--- NOTE | 2016-07-02 10:50 | EKG ---
Date Performed: 07/01/2016 Time Performed: 13:30:08 PTAGE: 70 years EKG: Sinus rhythm WITH OCCASIONAL SUPRAVENTRICULAR PREMATURE COMPLEXES ARM LEADS REVERSED Compared to prior tracing, t he patient is no longer in atrial fibrillation. BORDERLINE ECG PREVIOUS TRACING : 07/01/2016 13.07 DOCTOR: Dee Almanzar Interpretating Date/Time 07/02/2016 10:46:02
--- NOTE | 2016-07-02 11:30 | MB ---
cc: LILI OJEDA DATE OF CONSULTATION: 07/02/2016 DATE OF : 1945 REASON FOR CONSULTATION Atrial fibrillation / Atypical chest pain. HISTORY OF PRESENT ILLNESS 70-year-old female with past medical history significant for atrial fibrillation on oral anticoagulation coronary artery disease status post PCI, hypertension, and chronic scoliosis, chronic back pain and COPD. Patient presented to the emergency department via EMS with complaints of right-sided chest discomfort with nausea and headaches. The patient reports she was in her usual state of health until yesterday when she could not get out of bed and had this right-sided chest discomfort with was worsened with palpation for which she called EMS. On evaluation by EMS her heart was in the 190-200 range. She was giving 6 mg and 12 mg of Adenosine. EKG in the emergency department revealed atrial fibrillation with RVR ST depressions in the lateral leads. IV Cardizem given with control rate/conversion to sinus rhythm. The patient has a history of CAD status post PCI around 6 to 7 years ago. She is followed in [place], [place]. She reports she has had a couple visits the emergency department with a typical chest pain which unremarkable workups in the past. She reports being compliant with medications. Currently she denies chest pain, shortness of breath, palpitations, syncope, lightheadedness, fevers, chills, nausea, vomiting, diarrhea. She still complains of a headache. REVIEW OF SYSTEMS Review of systems negative except for what is mentioned in HPI. PAST MEDICAL HISTORY 1. Coronary artery disease Status post PCI x2 2. Atrial fibrillation on chronic oral anticoagulation, hypertension, 3. Scoliosis 4. COPD. PAST SURGICAL HISTORY 1. Total abdominal hysterectomy 2. Spinal surgery. 3. Cholecystectomy. 4. Percutaneous coronary intervention HOME MEDICATIONS: 1. [place] 2. Lisinopril 20 mg p.o. daily 3. 20 mg p.o. daily, 4. fentanyl patch 5. Cardizem. ALLERGIES PENICILLIN FAMILY HISTORY Noncontributory. SOCIAL HISTORY Denies alcohol, illicit drug use or tobacco abuse. PHYSICAL EXAMINATION: VITAL SIGNS: Vital signs: Temperature 97.8, respiratory rate 1885, blood pressure 148/65, O2 sat 93% in room air. IN GENERAL: Generally awake, alert, oriented x3 in no acute distress. NECK: No JVD, no carotid bruits. CHEST: Tender to palpation on the right side. HEART: Regular rate and rhythm. No murmurs, rubs or gallops. LUNGS: Right lung respiratory rales. Left lung is clear. No wheezes or rhonchi or rales. ABDOMEN: Soft, nontender, nondistended. Positive bowel sounds EXTREMITIES: No cyanosis or edema. Pulses throughout. LABORATORY DATA CBC hemoglobin 11, hematocrit 34, platelet count 194, INR 1.0, sodium 144, potassium 3.4, BUN 60th creatinine 0.49, calcium 8.4. Troponin 0.02, 0.08 and 0.12. Total protein 5.7, albumin 3.0, lipase 161. Chest x-ray Right lung consolidation and patent and pleural effusion. CT CHEST Today with thickening and consolidation in the left apex. EKG the first EKG done in the emergency department shows atrial fibrillation with rapid ventricular response and ST depression in the lateral leads. Subsequently EKG shows normal sinus. ASSESSMENT/PLAN 70-year-old female with above history and findings presented with his fibrillation with RVR and atypical chest pain. She remains febrile and hemodynamically stable. She is back in sinus rhythm. Troponins minimally elevated likely secondary to demand ischemia. Unfortunately she does not receives her care in this [place] and we do not have full cardiovascular history. At this point I would recommend to get her cardiology records from [facility], including echocardiogram and left heart catheterization. Get a 2-D echocardiogram, continue cycling cardiac enzymes, continue oral anticoagulation and Cardizem. Incentive spirometry. Thank you for the opportunity to take part in the care of this patient Further therapy to be determined MD SHEILA Caal/antonia /9:35 AM /10:15 AM MAYA
[2016-07-02] MEDS ORDERED: MORPHINE SULFATE 4 MG/ML INJ IV PUSH ONE (13:45)
[2016-07-02] MEDS: AZITHROMYCIN INJ 500 MG in SODIUM CHLOR 0.9% 250 ML INJ 250 ML IV SCH (16:52)
[2016-07-02] MEDS: cefTRIAXone INJ 1,000 MG in SODIUM CHLORIDE 0.9% INJ 100 ML IV SCH (16:52)
[2016-07-02] MEDS: ACETAMINOPHEN/HYDROcodone 325 MG/10 MG TAB PO PRN ×2 (16:53→20:31)
[2016-07-03] VITALS (10 sets, daily range): BP systolic 160–184; BP diastolic 72–86; PULSE 82–93; RESP 16–18; TEMP 97.2–98.1; O2SAT 91–99
[2016-07-03] MEDS: ACETAMINOPHEN/HYDROcodone 325 MG/10 MG TAB PO PRN ×6 (00:11→21:16)
[2016-07-03] MEDS: RESP: ALBUTEROL 2.5 MG/IPRATROPIUM 0.5 MG NEB (SCH) NEB ×7 (01:27→23:36)
[2016-07-03] MEDS: DOCUSATE SODIUM 100 MG CAP PO SCH ×2 (05:10→16:56)
[2016-07-03] MEDS: ONDANSETRON HCL 4 MG/2 ML VIAL IVP PRN ×2 (08:29→16:56)
[2016-07-03] MEDS: METOCLOPRAMIDE HCL 10 MG TAB PO PRN (11:08)
[2016-07-03] MEDS: DILTIAZEM HCL 30 MG TAB PO SCH ×2 (12:03→16:57)
[2016-07-03] MEDS: guaiFENesin E.R. 600 MG TAB PO SCH ×2 (12:03→21:17)
[2016-07-03] MEDS: RIVAROXABAN 20 MG TAB PO SCH (12:03)
[2016-07-03] MEDS: LISINOPRIL 20 MG TAB PO SCH (12:03)
--- NOTE | 2016-07-03 13:29 | EC ---
Study Study Date:07/03/2016 STUDY CONCLUSIONS SUMMARY - Procedure narrative: Transthoracic echocardiography. Image quality was good. Scanning was performed from the parasternal, apical, and subcostal acoustic windows. - Left ventricle: The cavity size was normal. Wall thickness was at the upper limits of normal. Systolic function was normal. The estimated ejection fraction was in the range of 60% to 65%. Wall motion was normal; there were no regional wall motion abnormalities. - Mitral valve: Trace regurgitation. - Tricuspid valve: Trace regurgitation. - Pericardium, extracardiac: A trivial pericardial effusion was identified. If LV function is below 40, please consider prescribing an ACEI or ARB or document rationale for non-use. PROCEDURE DATA STUDY STATUS: Elective. Procedure: Transthoracic echocardiography. Image quality was good. Scanning was performed from the parasternal, apical, and subcostal acoustic windows. Study completion: The patient tolerated the procedure well. Transthoracic echocardiography. M-mode, complete 2D, complete spectral Doppler, and color Doppler. Height: Height: 60in. Weight: Weight: 110.8lb. Body mass index: BMI: 21.7kg/m^2. Body surface area: BSA: 1.45m^2. Patient status: Inpatient. CARDIAC ANATOMY LEFT VENTRICLE: The cavity size was normal. Wall thickness was at the upper limits of normal. Systolic function was normal. The estimated ejection fraction was in the range of 60% to 65%. Wall motion was normal; there were no regional wall motion abnormalities. AORTIC VALVE: Trileaflet; normal thickness leaflets. Doppler: Transvalvular velocity was within the normal range. There was no stenosis. No regurgitation. AORTA: Aortic root: The aortic root was normal in size. MITRAL VALVE: Structurally normal valve. Doppler: Transvalvular velocity was within the normal range. There was no evidence for stenosis. Trace regurgitation. Valve area by pressure half-time: 3.67cm^2. Indexed valve area by pressure half-time: 2.53cm^2/m^2. Peak gradient: 4mm Hg (D). LEFT ATRIUM: The atrium was normal in size. RIGHT VENTRICLE: The cavity size was normal. Wall thickness was normal. PULMONIC VALVE: Doppler: Transvalvular velocity was within the normal range. There was no evidence for stenosis. No regurgitation. TRICUSPID VALVE: Structurally normal valve. Doppler: Transvalvular velocity was within the normal range. Trace regurgitation. Peak gradient: 33mm Hg (D). PULMONARY ARTERY: The main pulmonary artery was normal-sized. Systolic pressure was within the normal range. RIGHT ATRIUM: The atrium was normal in size. PERICARDIUM: A trivial pericardial effusion was identified. SYSTEMIC VEINS: Inferior vena cava: The vessel was normal in size. Patient weight: 110.8lb _Ejection fraction:_ 65-75% _Fractional shortening:_ 32% up to 5Kg 5-11.5Kg 11.6-22.9Kg 23-45Kg 45-57Kg Aortic Root 7-13 <17 13-22 17-27 17-27 LA diam 6-13 <23 24-38 33-47 37-40 RVID 10-17 7-15 7-15 7-18 8-17 LVIDd 12-22 <32 24-38 33-47 37-40 LVPW 2-4 3-6 5-7 6-8 7-8 IVS 2-4 3-6 5-7 6-8 7-8 BASIC MEASUREMENTS ADULT NORMAL Aortic valve Leaflet separation 17 mm 15-26 Right ventricle RV internal dimension, ED, PLAX 23.6 mm 19-38 BASIC MEASUREMENTS ADULT NORMAL Left ventricle LV internal dimension, ED 44 mm 37-56 LV internal dimension, ES 22.2 mm Fractional shortening *50 % 29-45 LV posterior wall, ED 10 mm 6-11 Septal/posterior wall ratio, ED 0.86 Relative wall thickness, ED *0.45 <0.45 Volume, ED, Teichholz 87.7 ml Volume, ES, Teichholz 16.6 ml Ejection fraction, Teichholz 81.1 % 64-83 Stroke volume, Teichholz 71.1 ml Volume index, ED, Teichholz 60 ml/m^2 Volume index, ES, Teichholz 11 ml/m^2 Stroke index, Teichholz 49 ml/m^2 Wall mass 133.6 g Wall mass index 92.2 g/m^2 Mass/height 0.88 g/cm Ventricular septum Septal thickness, ED 8.58 mm Aortic valve Leaflet separation 17 mm 15-26 Aorta Root diameter, ED 30 mm 20-37 DOPPLER MEASUREMENTS ADULT NORMAL Main pulmonary artery Pressure, S 25 mm Hg =30 Aortic valve Peak velocity, S 115 cm/s Regurgitant velocity, ED 294 cm/s Regurgitant deceleration 1910 cm/s^2 Regurgitant pressure half-time 468 ms Regurgitant gradient, ED 35 mm Hg Mitral valve Peak E-wave velocity 106 cm/s Peak A-wave velocity 80.9 cm/s Pressure half-time 60 ms Peak gradient, D 4 mm Hg Peak E/A ratio 1.3 Valve area, pressure half-time 3.67 cm^2 Valve area index, pressure half-time 2.53 cm^2/m^2 Tricuspid valve Peak gradient, D 33 mm Hg Maximal inflow velocity 288 cm/s Regurgitant peak velocity 216 cm/s Peak RV-RA gradient, S 19 mm Hg Systemic veins Estimated CVP 10 mm Hg Right ventricle RV pressure, S 29 mm Hg <30 Pulmonic valve Peak velocity, S 96.4 cm/s LEGEND: Mean values are shown as u=mean value. Asterisk (*) marley values outside specified normal range. Prepared and signed by Adarsh Hardy [id number]
--- NOTE | 2016-07-03 13:30 | HHI.PR ---
Subjective Remarks This is a pleasant 70 y/o Female who came to ER brought in by EMS after the patient complaint of Atypical chest pain, she woke up in the morning because did not improved she called EMS, When they arrived her heart rate was in 190s to 200. They identified her as in SVT and gave her 6 mg of adenosine followed by 12. This slowed the heart rate down to the 160 and at this point The rhythm showed Atrial Fibrillation with RVR given Cardizem 20 mg IV the patient continue with heart rate in 150s associated Anxiety and distressed, Complained of her chest hurting on the left side with no radiation. has CAD status post PCI and Stent placement x 2, history of Atrial Fibrillation, Her last stent was about 6-7 years ago. She is on Xarelto. as per patient she started with Chest pain when she woke up the pain was Precordial pain, 9/10 in intensity, radiated to the posterior area of the head, lasted for 5 to 10 minutes but did not improved totally. 07/02: Seen in her bedroom, denies Chest pain, has some Nausea probable secondary to Pain medicine or Potassium but the patient states she has Nausea at home most of the time. No diarrhea or vomit 07/03: Stable in her bedroom, complaint of headache, recommended to reduce the dosages of narcotic medicines she asks, also states she has Migraine, visual specialist asking for medical records, also continue Cardiac enzymes, continue Oral anticoagulation, and Cardizem, Echocardiogram. Objective Vital Signs Date Time Temp Pulse Resp B/P Pulse Ox O2 Delivery O2 Flow Rate FiO2 07/03/16 08:42 95 Nasal Cannula 21 07/03/16 08:01 98.1 82 18 184/86 99 07/03/16 08:00 96 Room Air 21 07/03/16 08:00 82 07/03/16 04:00 97.6 86 16 166/72 97 07/03/16 01:28 98 07/03/16 00:00 97.7 88 18 175/80 91 07/02/16 20:56 88 07/02/16 20:15 98.3 91 20 132/59 95 07/02/16 20:00 98.3 91 20 132/59 95 07/02/16 20:00 Room Air 07/02/16 17:53 20 07/02/16 16:00 98.2 86 14 130/61 96 07/02/16 15:44 95 21 I/O 07/02/16 07/02/16 07/02/16 07/03/16 07/03/16 07/03/16 07:00 15:00 23:00 07:00 15:00 23:00 Intake Total 631 ml 960 ml 1491 ml 498 ml Output Total 300 ml Balance 631 ml 960 ml 1491 ml 198 ml Intake Oral 0 ml 960 ml IV Total 631 ml 1491 ml 498 ml Output Urine Total 300 ml # Voids 0 3 # Bowel Movements 0 0 1 Result Diagram: 07/02/16 0316 07/02/16 0316 Imaging Last Impressions Chest X-Ray 07/01/16 1309 Signed Impressions: Service Date/Time: Friday, July 01, 2016 13:18 - CONCLUSION: Abnormal chest as described above. Jaspreet Marroquin MD FACR Chest CT 07/01/16 0000 Signed Impressions: Service Date/Time: Friday, July 01, 2016 16:33 - CONCLUSION: 1. There is pleural thickening and consolidation in the left apex which is probably on a chronic basis. I would recommend this patient undergo a CT scan in 6 months to ensure stability. 2. Severe rotatory scoliosis. Uri Marroquin MD Procedures No procedures performed. Other Results Laboratory Tests Test 07/01/16 07/02/16 13:50 03:16 Activated Partial 23.8 SEC Thromboplast Time Magnesium Level 1.8 MG/DL Creatine Kinase MB 5.2 NG/ML White Blood Count 5.2 TH/MM3 Red Blood Count 3.92 MIL/MM3 Hemoglobin 11.1 GM/DL Hematocrit 34.4 % Mean Corpuscular Volume 87.8 FL Mean Corpuscular Hemoglobin 28.3 PG Mean Corpuscular Hemoglobin 32.2 % Concent Red Cell Distribution Width 16.7 % Platelet Count 194 TH/MM3 Mean Platelet Volume 8.3 FL Neutrophils (%) (Auto) 71.9 % Lymphocytes (%) (Auto) 14.4 % Monocytes (%) (Auto) 10.6 % Eosinophils (%) (Auto) 2.8 % Basophils (%) (Auto) 0.3 % Neutrophils # (Auto) 3.8 TH/MM3 Lymphocytes # (Auto) 0.8 TH/MM3 Monocytes # (Auto) 0.6 TH/MM3 Eosinophils # (Auto) 0.1 TH/MM3 Basophils # (Auto) 0.0 TH/MM3 CBC Comment DIFF FINAL Differential Comment Prothrombin Time 11.4 SEC Prothromb Time International 1.0 RATIO Ratio Sodium Level 144 MEQ/L Potassium Level 3.4 MEQ/L Chloride Level 108 MEQ/L Carbon Dioxide Level 28.6 MEQ/L Anion Gap 7 MEQ/L Blood Urea Nitrogen 16 MG/DL Creatinine 0.49 MG/DL Estimat Glomerular Filtration 124 ML/MIN Rate Random Glucose 90 MG/DL Calcium Level 8.4 MG/DL Total Bilirubin 0.4 MG/DL Direct Bilirubin 0.1 MG/DL Indirect Bilirubin 0.3 MG/DL Aspartate Amino Transf 11 U/L (AST/SGOT) Alanine Aminotransferase 13 U/L (ALT/SGPT) Alkaline Phosphatase 63 U/L Total Creatine Kinase 71 U/L Troponin I 0.12 NG/ML Total Protein 5.7 GM/DL Albumin 3.0 GM/DL Lipase 161 U/L Objective Remarks GENERAL: Awake, alert, No distress at this time. SKIN: Focused skin assessment warm/dry. HEAD: Atraumatic. Normocephalic. EYES: Pupils equal and round. No scleral icterus. No injection or drainage. ENT: No nasal bleeding or discharge. Mucous membranes pink and moist. NECK: Trachea midline. No JVD. CARDIOVASCULAR: Irregularly irregular rhythm. Systolic murmur on Pulmonary valve RESPIRATORY: No accessory muscle use. Clear to auscultation. Breath sounds equal bilaterally. GASTROINTESTINAL: Abdomen soft, non-tender, nondistended. Hepatic and splenic margins not palpable. MUSCULOSKELETAL: No obvious deformities. No clubbing. No cyanosis. No edema. NEUROLOGICAL: Awake and alert. No obvious cranial nerve deficits. Motor grossly within normal limits. Normal speech. PSYCHIATRIC: Appropriate mood and affect; insight and judgment normal. Medications and IVs Current Medications Medications (Trade) Dose Ordered Sig/Reji Route Start Time Stop Time Status Last Admin Ceftriaxone Sodium 1000 mg/ Sodium Chloride 100 ml @ 200 mls/hr Q24H IV 07/01/16 17:00 07/02/16 16:52 Azithromycin 500 mg/Sodium Chloride 250 ml @ 250 mls/hr Q24H IV 07/01/16 16:00 07/02/16 16:52 (NS 1000 ml Inj) 1,000 ml @ 75 mls/hr [id number] IV 07/01/16 16:00 07/02/16 20:20 (NS Flush) 2 ml UNSCH PRN IV FLUSH 07/01/16 15:45 (NS Flush) 2 ml BID IV FLUSH 07/01/16 21:00 07/02/16 20:23 (Tylenol) 650 mg Q4H PRN PO 07/01/16 15:45 (Zofran Inj) 4 mg Q6H PRN IVP 07/01/16 15:45 07/03/16 08:29 (Dulcolax Supp) 10 mg DAILY PRN RECTAL 07/01/16 15:45 (Colace) 100 mg Q12H PO 07/01/16 18:00 07/03/16 05:10 (Narcan Inj) 0.4 mg UNSCH PRN IV 07/01/16 15:45 (Duragesic 75 Mcg Patch.72 Hr) 1 patch Q72H T-DERMAL 07/01/16 18:00 07/01/16 20:38 (Prinivil) 20 mg DAILY PO 07/02/16 09:00 07/03/16 12:03 (Xarelto) 20 mg DAILY PO 07/02/16 09:00 07/03/16 12:03 (Mucinex Er) 600 mg BID PO 07/01/16 21:00 07/03/16 12:03 ([place] 10-325 Mg) 1 tab Q4H PRN PO 07/02/16 13:45 07/03/16 13:13 (Cardizem) 30 mg Q6HR PO 07/03/16 12:00 07/03/16 12:03 (Reglan) 10 mg ACHS PRN PO 07/03/16 10:15 07/03/16 11:08 A/P Assessment and Plan 1. Atrial Fibrillation with RVR converted to sinus rhythm with Metoprolol IV then started by mouth, EKG showed normal sinus rhythm with right axis deviation with LVH, old lateral [place]. Heart rate of 84 bpm at this time stable in sinus rhythm, Troponin elevation awaiting for Echocardiogram result also for Cardiology consult, this mild elevation in Troponin may be related to her Atrial Fibrillation with RVR visual specialist following appreciated assistance, asked for medical records, Echocardiogram EF 60-65%. continue Cardizem and Xarelto. 2. Pneumonia and Pleural effusions on the left side started on Ceftriaxone and Azithromycin and followed by Emergency medicine specialist with CT Chest as recommended by health insurance specialist. continue antibiotics at this time by now. will follow laboratory in am tomorrow if stable afebrile will discontinue antibiotics no need for further antibiotics. 3. CAD status post PCI and Stent placement x 2. 4. Hypertension continue home medicines, mild uncontrol just received her anti- Hypertensives. 5. OA. 6. Chronic anticoagulation 7. Electrolyte derangement replaced and following. DVT prophylaxis Xarelto Discussed with Patient in the room, asking for discharge probable for tomorrow. Called placed to he Daughter Miss Cassandra Garvin to the Phone number [phone] No Answer states the person do not accept calls at this time. Code Status Full Code. Discharge Planning Awaiting final by Cardiology to discharge Home. Ismael Sumner MD Jul 03, 2016 13:30
[2016-07-03] MEDS: AZITHROMYCIN INJ 500 MG in SODIUM CHLOR 0.9% 250 ML INJ 250 ML IV SCH (15:57)
[2016-07-03] MEDS: cefTRIAXone INJ 1,000 MG in SODIUM CHLORIDE 0.9% INJ 100 ML IV SCH (18:24)
[2016-07-03] MEDS: ACETAMIN 325 MG/BUTALBITAL 50 MG/CAFFEINE 40 MG TAB PO PRN (21:17)
[2016-07-03] MEDS: SODIUM CHLORIDE 0.9% FLUSH 10 ML FLUSH IV FLUSH SCH (21:18)
[2016-07-04] VITALS (9 sets, daily range): BP systolic 144–182; BP diastolic 62–92; PULSE 71–89; RESP 16–20; TEMP 97.5–98.2; O2SAT 95–98
[2016-07-04] MEDS: ACETAMINOPHEN/HYDROcodone 325 MG/10 MG TAB PO PRN ×4 (01:20→18:40)
[2016-07-04] MEDS: DILTIAZEM HCL 30 MG TAB PO SCH ×4 (01:20→18:39)
[2016-07-04] MEDS: RESP: ALBUTEROL 2.5 MG/IPRATROPIUM 0.5 MG NEB (SCH) NEB ×5 (03:57→20:00)
[2016-07-04] MEDS: DOCUSATE SODIUM 100 MG CAP PO SCH ×2 (05:32→18:00)
[2016-07-04 06:22] LABS: AUTOMATED NEUTROPHIL # 2.6 TH/MM3 (1.8-7.7); BASOPHIL % 0.7 % (0.0-2.0); EOSINOPHIL # 0.2 TH/MM3 (0-0.4); EOSINOPHIL % 4.8 % (0.0-4.0); HEMATOCRIT 34.7 % (35.0-46.0); HEMO FLAGS DIFF FINAL; LYMPH % 24.7 % (9.0-44.0); LYMPHOCYTE # 1.1 TH/MM3 (1.0-4.8); MEAN CELL VOLUME 87.5 FL (80.0-100.0); MEAN CORPUSCULAR HEMOGLOBIN 28.9 PG (27.0-34.0); MONO % 12.7 % (0.0-8.0); NEUT % 57.1 % (16.0-70.0); PLATELET COUNT 183 TH/MM3 (150-450); RED BLOOD COUNT 3.96 MIL/MM3 (4.00-5.30); RED CELL DISTRIBUTION WIDTH 16.5 % (11.6-17.2); WHITE BLOOD COUNT 4.5 TH/MM3 (4.0-11.0)
[2016-07-04 06:38] LABS: BICARBONATE 33.1 MEQ/L (21.0-32.0); MAGNESIUM 2.1 MG/DL (1.5-2.5)
[2016-07-04] MEDS: guaiFENesin E.R. 600 MG TAB PO SCH ×2 (08:37→20:45)
[2016-07-04] MEDS: LISINOPRIL 20 MG TAB PO SCH (08:37)
[2016-07-04] MEDS: ACETAMIN 325 MG/BUTALBITAL 50 MG/CAFFEINE 40 MG TAB PO PRN ×2 (08:37→20:44)
[2016-07-04] MEDS: RIVAROXABAN 20 MG TAB PO SCH (08:37)
[2016-07-04] MEDS: ONDANSETRON HCL 4 MG/2 ML VIAL IVP PRN ×2 (08:38→15:32)
[2016-07-04] MEDS ORDERED: DIATRIZOATE MEGLUM/DIATRIZOATE SOD 9 ML CUP PO ONE (13:00)
[2016-07-04] MEDS: PANTOPRAZOLE SODIUM 40 MG VIAL IV PUSH SCH ×2 (13:34→20:45)
--- NOTE | 2016-07-04 15:16 | HHI.PR ---
Subjective Remarks Patient complaining of abdominal pain. She said abdominal pain and she started about 2 days ago. She's initially was intermittent pronounced constant. Pain is located mid abdomen. She also feels nauseated but has not had any emesis. Deny taking any NSAIDs. Denied diarrhea or constipation. She remains afebrile. Deny any shortness of breathing or cough or any URI symptoms. Objective Vitals Vital Signs Date Time Temp Pulse Resp B/P Pulse Ox O2 Delivery O2 Flow Rate FiO2 07/04/16 12:05 97.9 80 18 159/77 96 07/04/16 11:48 95 21 07/04/16 08:38 97.9 71 18 161/76 96 07/04/16 04:00 97.5 80 18 169/75 97 158/62 07/04/16 01:00 164/92 07/04/16 00:00 97.7 88 18 171/72 98 07/03/16 20:00 Room Air 07/03/16 20:00 97.3 83 18 162/72 98 07/03/16 19:28 93 21 07/03/16 16:01 98.0 93 18 160/73 98 I/O 07/03/16 07/03/16 07/03/16 07/04/16 07/04/16 07/04/16 07:00 15:00 23:00 07:00 15:00 23:00 Intake Total 498 ml 600 ml 240 ml 120 ml Output Total 300 ml 4000 ml 850 ml 250 ml Balance 198 ml -3400 ml -610 ml -130 ml Intake Oral 600 ml 240 ml 120 ml IV Total 498 ml Output Urine Total 300 ml 4000 ml 850 ml 250 ml # Bowel Movements 1 0 0 0 Result Diagram: 07/04/16 0525 07/04/16 0525 Imaging Last Impressions Chest X-Ray 07/01/16 1309 Signed Impressions: Service Date/Time: Friday, July 01, 2016 13:18 - CONCLUSION: Abnormal chest as described above. Jaspreet Marroquin MD FACR Chest CT 07/01/16 0000 Signed Impressions: Service Date/Time: Friday, July 01, 2016 16:33 - CONCLUSION: 1. There is pleural thickening and consolidation in the left apex which is probably on a chronic basis. I would recommend this patient undergo a CT scan in 6 months to ensure stability. 2. Severe rotatory scoliosis. Uri Marroquin MD Objective Remarks GENERAL: in nad CARDIOVASCULAR: Regular rate and rhythm without murmurs, gallops, or rubs. RESPIRATORY: Breath sounds equal bilaterally. No accessory muscle use. GASTROINTESTINAL: Abdomen soft, nondistended, positive tenderness to palpation in the mid abdomen area. Negative for any peritoneal signs. Negative for any hepatosplenomegaly. MUSCULOSKELETAL: No cyanosis, or edema. BACK: Nontender without obvious deformity. No CVA tenderness. Medications and IVs Current Medications Metoprolol Tartrate 5 mg 5 mg ONCE ONCE IV PUSH Last administered on 07/01/16 13:15; Start 07/01/16 at 13:15; Stop 07/01/16 at 13:16; Status DC Sodium Chloride (NS 1000 ml Inj) 1,000 ml @ 999 mls/hr BOLUS ONCE IV Last administered on 07/01/16 13:30; Start 07/01/16 at 13:30; Stop 07/01/16 at 14:30; Status DC Metoprolol Tartrate 50 mg 50 mg ONCE ONCE PO Last administered on 07/01/16 13: 30; Start 07/01/16 at 13:30; Stop 07/01/16 at 13:31; Status DC Ceftriaxone Sodium 1000 mg/ Sodium Chloride 100 ml @ 200 mls/hr Q24H IV Last administered on 07/03/16 18:24; Start 07/01/16 at 17:00; Stop 07/04/16 at 12:11; Status DC Azithromycin 500 mg/Sodium Chloride 250 ml @ 250 mls/hr Q24H IV Last administered on 07/03/16 15:57; Start 07/01/16 at 16:00; Stop 07/04/16 at 12:11; Status DC Sodium Chloride (NS 1000 ml Inj) 1,000 ml @ 75 mls/hr [id number] IV Last administered on 07/02/16 20:20; Start 07/01/16 at 16:00 Sodium Chloride (NS Flush) 2 ml UNSCH PRN IV FLUSH FLUSH AFTER USING IV ACCESS ; Start 07/01/16 at 15:45 Sodium Chloride (NS Flush) 2 ml BID IV FLUSH Last administered on 07/02/16 20: 23; Start 07/01/16 at 21:00 Acetaminophen (Tylenol) 650 mg Q4H PRN PO TEMP > 100.4 Last administered on 07/03 15:59; Start 07/01/16 at 15:45 Ondansetron HCl (Zofran Inj) 4 mg Q6H PRN IVP NAUSEA OR VOMITING Last administered on 07/04/16 08:38; Start 07/01/16 at 15:45 Bisacodyl (Dulcolax Supp) 10 mg DAILY PRN RECTAL CONSTIPATION; Start 07/01/16 at 15:45 Docusate Sodium (Colace) 100 mg Q12H PO Last administered on 07/04/16 05:32; Start 07/01/16 at 18:00 Enoxaparin Sodium (Lovenox Inj) 40 mg Q24H SQ ; Start 07/01/16 at 16:00; Stop 07/01/16 at 16:40; Status DC Naloxone HCl (Narcan Inj) 0.4 mg UNSCH PRN IV SEE LABEL COMMENTS; Start at 15:45 Acetaminophen (Tylenol) 650 mg ONCE ONCE PO Last administered on 07/01/16 16: 00; Start 07/01/16 at 16:00; Stop 07/01/16 at 16:01; Status DC Fentanyl (Duragesic 75 Mcg Patch.72 Hr) 1 patch Q72H T-DERMAL Last administered on 07/01/16 20:38; Start 07/01/16 at 18:00 Lisinopril (Prinivil) 20 mg DAILY PO Last administered on 07/04/16 08:37; Start 07/02/16 at 09:00 Rivaroxaban (Xarelto) 20 mg DAILY PO Last administered on 07/04/16 08:37; Start 07/02/16 at 09:00 Albuterol/ Ipratropium (Duoneb Neb) 1 ampule Q4HR NEB NEB Last administered on 07/04/16 11:47; Start 07/01/16 at 20:00 Guaifenesin (Mucinex Er) 600 mg BID PO Last administered on 07/04/16 08:37; Start 07/01/16 at 21:00 Clonidine (Catapres) 0.1 mg ONCE ONCE PO ; Start 07/01/16 at 18:00; Stop at 18:06; Status DC Acetaminophen/ Hydrocodone Bitart ([place] 5-325 Mg) 1 tab Q4H PRN PO PAIN SCALE 4 TO 10 Last administered on 07/02/16 13:35; Start 07/01/16 at 18:15; Stop 07/02/16 at 13:40; Status DC Potassium Chloride 60 meq 60 meq ONCE ONCE PO Last administered on 07/02/16 09 :03; Start 07/02/16 at 08:30; Stop 07/02/16 at 08:40; Status DC Magnesium Sulfate/ Dextrose (Magnesium Sulfate 1 Gm Premix) 100 ml @ 100 mls/ hr Q1H IV Last administered on 07/02/16 10:28; Start 07/02/16 at 08:30; Stop 07/02/16 at 10:29; Status DC Acetaminophen/ Hydrocodone Bitart ([place] 10-325 Mg) 1 tab Q4H PRN PO PAIN SCALE 5 TO 10 Last administered on 07/04/16 11:25; Start 07/02/16 at 13:45 Morphine Sulfate (Morphine Inj) 2 mg ONCE ONCE IV PUSH Last administered on 14:47; Start 07/02/16 at 13:45; Stop 07/02/16 at 13:46; Status DC Diltiazem HCl (Cardizem) 30 mg Q6HR PO Last administered on 07/04/16 11:24; Start 07/03/16 at 12:00 Metoclopramide HCl (Reglan) 10 mg ACHS PRN PO Nausea and vomit Last administered on 07/03/16 11:08; Start 07/03/16 at 10:15 Acetaminophen/ Butalbital/ Caffeine (Fioricet 325-50-40) 1 tab Q6H PRN PO HEADACHE Last administered on 07/04/16 08:37; Start 07/03/16 at 19:00 Pantoprazole Sodium (Protonix Inj) 40 mg Q12HR IV PUSH Last administered on 07/04 13:34; Start 07/04/16 at 12:15 Diatrizoate Meglum/ Diatrizoate Sod ( Gastroview Liq) 18 ml ONCE ONCE PO Last administered on 07/04/16 13:31; Start 07/04/16 at 13:00; Stop 07/04/16 at 13: 01; Status DC A/P Assessment and Plan Abdominal pain with nausea -Started 2 days ago. Will get CT scan of the abdomen and pelvis with contrast. -Will add Protonix IV twice a day. Atrial Fibrillation with RVR converted to sinus rhythm - EKG showed normal sinus rhythm with right axis deviation with LVH, old lateral [place]. Echocardiogram EF 60-65%. Mild elevated troponin secondary to demand ischemia from the age of fibrillation with RVR. -Continue with Cardizem and Xarelto per trimming inspector. -Will transition to long-acting Cardizem tomorrow. Pleural thickening and consolidation in the left apex which is probably on a chronic basis. -Patient has no symptoms of pneumonia or any upper story symptoms. Will discontinue Rocephin and azithromycin and monitor off antibiotics. -Per radiologist recommend CT scan in 6 months to ensure stability. Patient is aware. CAD status post PCI and Stent placement x 2. -Home medication resumed. Hypertension continue home medicines -Patient on Cardizem, lisinopril -Uncontrolled. We will add amlodipine. Chronic anticoagulation -On Xarelto DVT prophylaxis Xarelto Discharge Planning Patient now complaining of abdominal pain for the past 2 days it has worsened. I will need to work this up. Pending CT scan. Marli Coombs MD Jul 04, 2016 15:16
[2016-07-04] MEDS ORDERED: IOHEXOL 350 MG/ML 10 ML VIAL (for RAD DIAG) IV ONE (17:39)
--- NOTE | 2016-07-04 18:11 | RADRPT ---
EXAM DATE/TIME: 07/04/2016 17:27 [facility] COMPARISON: No previous studies available for comparison. INDICATIONS : Diffuse abdominal pain. IV CONTRAST: 75 cc Omnipaque 350 (iohexol) IV ORAL CONTRAST: Prescribed oral contrast ingested. RADIATION DOSE: 9.96 CTDIvol (mGy) MEDICAL HISTORY : Cardiovascular disease. Hypertension. SURGICAL HISTORY : Hysterectomy. Spinal rods ENCOUNTER: Initial ACUITY: 1 day PAIN SCALE: 5/10 LOCATION: Diffuse abdomen/pelvis TECHNIQUE: Volumetric scanning of the abdomen and pelvis was performed. Using automated exposure control and ad justment of the mA and/or kV according to patient size, radiation dose was kept as low as reasonably achievable to obtain optimal diagnostic quality images. FINDINGS: CT Abdomen: The spleen, pancreas right kidney, adrenals are unremarkable. There is an approximate 4-5 mm nonobstructing stone in the left kidney. Chronic vascular calcifications are present involving th e aorta, iliac arteries without any significant stenosis or aneurysmal dilatations for technique. The re is no ureteral stone and there is no hydronephrosis on either side. There is slight ascites throug hout the abdomen and pelvis. There is no evidence for any appreciable pathological adenopathy, or bow el obstruction. Multiple simple cysts are present in the liver the largest measures 1.[address] pelvis: There is no evidence for mass, abscess formation, or any significant adenopathy within the pelvis. There is scoliosis with degenerative changes and postsurgical changes of the patient's spine . There is moderate amount of stool throughout the colon. CONCLUSION: Hepatic cysts, stool throughout the colon and slight ascites with a tiny nonobstructi ng stone in the left kidney. Regla Bunch MD on July 04, 2016 at 17:52 Board Certified Radiologist. This report was verified electronically.
[2016-07-04] MEDS: METOCLOPRAMIDE HCL 10 MG TAB PO PRN (18:39)
[2016-07-04] MEDS: fentaNYL 75 MCG/HR PATCH T-DERMAL SCH (18:40)
[2016-07-04] MEDS: SODIUM CHLORIDE 0.9% FLUSH 10 ML FLUSH IV FLUSH SCH (20:45)
[2016-07-05] VITALS (10 sets, daily range): BP systolic 110–166; BP diastolic 55–80; PULSE 76–103; RESP 16–20; TEMP 97.2–97.9; O2SAT 96–99
[2016-07-05] MEDS: ACETAMINOPHEN/HYDROcodone 325 MG/10 MG TAB PO PRN ×5 (00:51→20:53)
[2016-07-05] MEDS: DILTIAZEM HCL 30 MG TAB PO SCH ×5 (00:53→23:14)
[2016-07-05] MEDS: SODIUM CHLOR 0.9% 1000 ML INJ 1,000 ML IV SCH ×2 (00:55→12:22)
[2016-07-05] MEDS: RESP: ALBUTEROL 2.5 MG/IPRATROPIUM 0.5 MG NEB (SCH) NEB ×5 (03:48→16:23)
[2016-07-05] MEDS: DOCUSATE SODIUM 100 MG CAP PO SCH ×2 (05:18→16:54)
[2016-07-05 07:25] LABS: HEMATOCRIT 38.2 % (35.0-46.0); MEAN CELL VOLUME 88.5 FL (80.0-100.0); MEAN CORPUSCULAR HEMOGLOBIN 28.4 PG (27.0-34.0); MEAN CORPUSCULAR HGB CONC 32.1 % (32.0-36.0); PLATELET COUNT 140 TH/MM3 (150-450); RED BLOOD COUNT 4.31 MIL/MM3 (4.00-5.30); RED CELL DISTRIBUTION WIDTH 16.7 % (11.6-17.2); REVIEW FLAG FINAL; WHITE BLOOD COUNT 4.2 TH/MM3 (4.0-11.0)
[2016-07-05 07:34] LABS: ANION GAP 6 MEQ/L (5-15); BICARBONATE 32.8 MEQ/L (21.0-32.0); BLOOD UREA NITROGEN 12 MG/DL (7-18); CHLORIDE 101 MEQ/L (98-107); SODIUM (NA) 140 MEQ/L (136-145)
[2016-07-05 07:36] LABS: ALKALINE PHOSPHATASE 68 U/L (45-117); ALT (GPT) 17 U/L (10-53); AST (GOT) 11 U/L (15-37); GLOMERULAR FILTRATION RATE 127 ML/MIN (>89); TOTAL BILIRUBIN ADULT 0.2 MG/DL (0.2-1.0)
[2016-07-05 07:48] LABS: POTASSIUM 4.3 MEQ/L (3.5-5.1)
[2016-07-05] MEDS: PANTOPRAZOLE SODIUM 40 MG VIAL IV PUSH SCH ×2 (08:16→20:53)
[2016-07-05] MEDS: LISINOPRIL 20 MG TAB PO SCH (08:16)
[2016-07-05] MEDS: guaiFENesin E.R. 600 MG TAB PO SCH ×2 (08:16→20:53)
[2016-07-05] MEDS: RIVAROXABAN 20 MG TAB PO SCH (08:16)
[2016-07-05] MEDS: SODIUM CHLORIDE 0.9% FLUSH 10 ML FLUSH IV FLUSH SCH ×2 (08:22→20:54)
[2016-07-05] MEDS: ACETAMIN 325 MG/BUTALBITAL 50 MG/CAFFEINE 40 MG TAB PO PRN ×2 (09:40→23:14)
[2016-07-05] MEDS ORDERED: MINERAL OIL ENEMA 118 ML BTL RECTAL ONE (12:00)
[2016-07-05] MEDS: ONDANSETRON HCL 4 MG/2 ML VIAL IVP PRN (16:15)
--- NOTE | 2016-07-05 16:18 | HHI.PR ---
Subjective Remarks Follow-up for abdominal pain Patient stated that she continues abdominal pain but that has improved. She denies any nausea or vomiting and is tolerated by mouth intake. Patient does not know when she had a last bowel movement but she stated that she has not had a bowel movement since she was hospitalized. She stated that she does have a history of constipation. Patient remains afebrile. Objective Vitals Vital Signs Date Time Temp Pulse Resp B/P Pulse Ox O2 Delivery O2 Flow Rate FiO2 07/05/16 16:00 97.9 95 18 110/55 98 07/05/16 12:00 97.5 78 17 160/77 99 07/05/16 08:16 98 21 07/05/16 08:00 97.4 78 17 166/80 98 07/05/16 07:56 Room Air 07/05/16 07:56 84 07/05/16 04:02 97.6 76 16 125/56 96 07/05/16 00:00 97.4 78 16 154/80 99 07/04/16 20:00 98.2 89 16 144/69 98 07/04/16 20:00 Room Air I/O 07/04/16 07/04/16 07/04/16 07/05/16 07/05/16 07/05/16 07:00 15:00 23:00 07:00 15:00 23:00 Intake Total 120 ml 720 ml 160 ml Output Total 250 ml Balance -130 ml 720 ml 160 ml Intake Oral 120 ml 720 ml 160 ml Output Urine Total 250 ml # Voids 3 2 3 # Bowel Movements 0 0 Result Diagram: 07/05/16 0658 07/05/16 0658 Imaging Last Impressions Abdomen/Pelvis CT 07/04/16 0000 Signed Impressions: Service Date/Time: June 17:27 - CONCLUSION: Hepatic cysts, stool throughout the colon and slight ascites with a tiny nonobstructing stone in the left kidney. Regla Bunch MD Chest X-Ray 07/01/16 1309 Signed Impressions: Service Date/Time: Friday, July 01, 2016 13:18 - CONCLUSION: Abnormal chest as described above. Jaspreet Marroquin MD FACR Chest CT 07/01/16 0000 Signed Impressions: Service Date/Time: Friday, July 01, 2016 16:33 - CONCLUSION: 1. There is pleural thickening and consolidation in the left apex which is probably on a chronic basis. I would recommend this patient undergo a CT scan in 6 months to ensure stability. 2. Severe rotatory scoliosis. Uri Marroquin MD Objective Remarks GENERAL: in nad CARDIOVASCULAR: Regular rate and rhythm without murmurs, gallops, or rubs. RESPIRATORY: Breath sounds equal bilaterally. No accessory muscle use. GASTROINTESTINAL: Abdomen soft, nondistended, positive tenderness to palpation in the mid abdomen area. Negative for any peritoneal signs. Negative for any hepatosplenomegaly. MUSCULOSKELETAL: No cyanosis, or edema. BACK: Nontender without obvious deformity. No CVA tenderness. Medications and IVs Current Medications Metoprolol Tartrate 5 mg 5 mg ONCE ONCE IV PUSH Last administered on 07/01/16 13:15; Start 07/01/16 at 13:15; Stop 07/01/16 at 13:16; Status DC Sodium Chloride (NS 1000 ml Inj) 1,000 ml @ 999 mls/hr BOLUS ONCE IV Last administered on 07/01/16 13:30; Start 07/01/16 at 13:30; Stop 07/01/16 at 14:30; Status DC Metoprolol Tartrate 50 mg 50 mg ONCE ONCE PO Last administered on 07/01/16 13: 30; Start 07/01/16 at 13:30; Stop 07/01/16 at 13:31; Status DC Ceftriaxone Sodium 1000 mg/ Sodium Chloride 100 ml @ 200 mls/hr Q24H IV Last administered on 07/03/16 18:24; Start 07/01/16 at 17:00; Stop 07/04/16 at 12:11; Status DC Azithromycin 500 mg/Sodium Chloride 250 ml @ 250 mls/hr Q24H IV Last administered on 07/03/16 15:57; Start 07/01/16 at 16:00; Stop 07/04/16 at 12:11; Status DC Sodium Chloride (NS 1000 ml Inj) 1,000 ml @ 75 mls/hr [id number] IV Last administered on 07/05/16 12:22; Start 07/01/16 at 16:00 Sodium Chloride (NS Flush) 2 ml UNSCH PRN IV FLUSH FLUSH AFTER USING IV ACCESS ; Start 07/01/16 at 15:45 Sodium Chloride (NS Flush) 2 ml BID IV FLUSH Last administered on 07/02/16 20: 23; Start 07/01/16 at 21:00 Acetaminophen (Tylenol) 650 mg Q4H PRN PO TEMP > 100.4 Last administered on 07/03 15:59; Start 07/01/16 at 15:45 Ondansetron HCl (Zofran Inj) 4 mg Q6H PRN IVP NAUSEA OR VOMITING Last administered on 07/04/16 15:32; Start 07/01/16 at 15:45 Bisacodyl (Dulcolax Supp) 10 mg DAILY PRN RECTAL CONSTIPATION; Start 07/01/16 at 15:45 Docusate Sodium (Colace) 100 mg Q12H PO Last administered on 07/05/16 05:18; Start 07/01/16 at 18:00 Enoxaparin Sodium (Lovenox Inj) 40 mg Q24H SQ ; Start 07/01/16 at 16:00; Stop 07/01/16 at 16:40; Status DC Naloxone HCl (Narcan Inj) 0.4 mg UNSCH PRN IV SEE LABEL COMMENTS; Start at 15:45 Acetaminophen (Tylenol) 650 mg ONCE ONCE PO Last administered on 07/01/16 16: 00; Start 07/01/16 at 16:00; Stop 07/01/16 at 16:01; Status DC Fentanyl (Duragesic 75 Mcg Patch.72 Hr) 1 patch Q72H T-DERMAL Last administered on 07/04/16 18:40; Start 07/01/16 at 18:00 Lisinopril (Prinivil) 20 mg DAILY PO Last administered on 07/05/16 08:16; Start 07/02/16 at 09:00 Rivaroxaban (Xarelto) 20 mg DAILY PO Last administered on 07/05/16 08:16; Start 07/02/16 at 09:00 Albuterol/ Ipratropium (Duoneb Neb) 1 ampule Q4HR NEB NEB Last administered on 07/05/16 11:39; Start 07/01/16 at 20:00 Guaifenesin (Mucinex Er) 600 mg BID PO Last administered on 07/05/16 08:16; Start 07/01/16 at 21:00 Clonidine (Catapres) 0.1 mg ONCE ONCE PO ; Start 07/01/16 at 18:00; Stop at 18:06; Status DC Acetaminophen/ Hydrocodone Bitart ([place] 5-325 Mg) 1 tab Q4H PRN PO PAIN SCALE 4 TO 10 Last administered on 07/02/16 13:35; Start 07/01/16 at 18:15; Stop 07/02/16 at 13:40; Status DC Potassium Chloride 60 meq 60 meq ONCE ONCE PO Last administered on 07/02/16 09 :03; Start 07/02/16 at 08:30; Stop 07/02/16 at 08:40; Status DC Magnesium Sulfate/ Dextrose (Magnesium Sulfate 1 Gm Premix) 100 ml @ 100 mls/ hr Q1H IV Last administered on 07/02/16 10:28; Start 07/02/16 at 08:30; Stop 07/02/16 at 10:29; Status DC Acetaminophen/ Hydrocodone Bitart ([place] 10-325 Mg) 1 tab Q4H PRN PO PAIN SCALE 5 TO 10 Last administered on 07/05/16 11:29; Start 07/02/16 at 13:45 Morphine Sulfate (Morphine Inj) 2 mg ONCE ONCE IV PUSH Last administered on 14:47; Start 07/02/16 at 13:45; Stop 07/02/16 at 13:46; Status DC Diltiazem HCl (Cardizem) 30 mg Q6HR PO Last administered on 07/05/16 11:25; Start 07/03/16 at 12:00 Metoclopramide HCl (Reglan) 10 mg ACHS PRN PO Nausea and vomit Last administered on 07/04/16 18:39; Start 07/03/16 at 10:15 Acetaminophen/ Butalbital/ Caffeine (Fioricet 325-50-40) 1 tab Q6H PRN PO HEADACHE Last administered on 07/05/16 09:40; Start 07/03/16 at 19:00 Pantoprazole Sodium (Protonix Inj) 40 mg Q12HR IV PUSH Last administered on 07/05 08:16; Start 07/04/16 at 12:15 Diatrizoate Meglum/ Diatrizoate Sod ( Gastroview Liq) 18 ml ONCE ONCE PO Last administered on 07/04/16 13:31; Start 07/04/16 at 13:00; Stop 07/04/16 at 13: 01; Status DC Amlodipine Besylate (Norvasc) 10 mg DAILY PO Last administered on 07/05/16 08: 15; Start 07/04/16 at 15:15 Iohexol (Omnipaque 350 Inj) 75 ml STK-MED ONCE IV Last administered on 17:39; Start 07/04/16 at 17:39; Stop 07/04/16 at 17:40; Status DC Mineral Oil (Fleet Mineral Oil Enema) 118 ml ONCE ONCE RECTAL Last administered on 07/05/16 12:22; Start 07/05/16 at 12:00; Stop 07/05/16 at 12:01; Status DC A/P Assessment and Plan Abdominal pain with nausea -Improving. -Started [address] scan showed Hepatic cysts, stool throughout the colon and slight ascites with a tiny nonobstructing stone in the left kidney. -Cell most likely due to gastritis versus constipation. We'll try an enema. -Continue her Protonix. -We will need to continue to monitor with serial abdominal exam to assure improvement. Atrial Fibrillation with RVR converted to sinus rhythm - EKG showed normal sinus rhythm with right axis deviation with LVH, old lateral [place]. Echocardiogram EF 60-65%. Mild elevated troponin secondary to demand ischemia from the age of fibrillation with RVR. 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 Pleural thickening and consolidation in the left apex which is probably on a chronic basis. -Patient has no symptoms of pneumonia or any upper story symptoms. Will discontinue Rocephin and azithromycin and monitor off antibiotics. -Per radiologist recommend CT scan in 6 months to ensure stability. Patient is aware. CAD status post PCI and Stent placement x 2. -Home medication resumed. Hypertension continue home medicines -Patient on Cardizem, lisinopril -Continue with amlodipine. Chronic anticoagulation -On Xarelto DVT prophylaxis Xarelto Discharge Planning Some improvement with abdominal pain. We'll need to observe at least another day to assure improvement and abdominal pain. Marli Coombs MD Jul 05, 2016 16:17
[2016-07-06] VITALS (11 sets, daily range): BP systolic 129–167; BP diastolic 60–74; PULSE 75–100; RESP 18–20; TEMP 97.1–98.3; O2SAT 91–100
[2016-07-06] MEDS: ACETAMINOPHEN/HYDROcodone 325 MG/10 MG TAB PO PRN ×5 (01:08→21:29)
[2016-07-06] MEDS: SODIUM CHLOR 0.9% 1000 ML INJ 1,000 ML IV SCH (02:40)
[2016-07-06] MEDS: DILTIAZEM HCL 30 MG TAB PO SCH ×3 (05:22→17:12)
[2016-07-06] MEDS: DOCUSATE SODIUM 100 MG CAP PO SCH ×2 (05:22→17:13)
[2016-07-06 08:13] LABS: HEMATOCRIT 34.3 % (35.0-46.0); MEAN CELL VOLUME 88.2 FL (80.0-100.0); MEAN CORPUSCULAR HEMOGLOBIN 28.2 PG (27.0-34.0); PLATELET COUNT 181 TH/MM3 (150-450); RED BLOOD COUNT 3.89 MIL/MM3 (4.00-5.30); RED CELL DISTRIBUTION WIDTH 16.8 % (11.6-17.2); REVIEW FLAG FINAL; WHITE BLOOD COUNT 4.3 TH/MM3 (4.0-11.0)
[2016-07-06] MEDS: guaiFENesin E.R. 600 MG TAB PO SCH ×2 (08:14→21:29)
[2016-07-06] MEDS: LISINOPRIL 20 MG TAB PO SCH (08:14)
[2016-07-06] MEDS: PANTOPRAZOLE SOD 40 MG DELAYED RELEASE TAB PO SCH ×2 (08:14→21:29)
[2016-07-06] MEDS: RIVAROXABAN 20 MG TAB PO SCH (08:14)
[2016-07-06] MEDS: SODIUM CHLORIDE 0.9% FLUSH 10 ML FLUSH IV FLUSH SCH ×3 (08:15→21:00)
[2016-07-06 08:32] LABS: ALT (GPT) 15 U/L (10-53); ANION GAP 6 MEQ/L (5-15); AST (GOT) 7 U/L (15-37); BICARBONATE 32.3 MEQ/L (21.0-32.0); BLOOD UREA NITROGEN 16 MG/DL (7-18); CHLORIDE 103 MEQ/L (98-107); GLOMERULAR FILTRATION RATE 178 ML/MIN (>89); POTASSIUM 3.9 MEQ/L (3.5-5.1); SODIUM (NA) 141 MEQ/L (136-145)
[2016-07-06 08:35] LABS: ALKALINE PHOSPHATASE 72 U/L (45-117); TOTAL BILIRUBIN ADULT 0.2 MG/DL (0.2-1.0)
--- NOTE | 2016-07-06 12:40 | PD.CARD.PN ---
Subjective Subjective Remarks Complaints of abn pain Constipation Objective Medications Current Medications Medications (Trade) Dose Ordered Sig/Reji Route Start Time Stop Time Status Last Admin (NS 1000 ml Inj) 1,000 ml @ 75 mls/hr [id number] IV 07/01/16 16:00 07/06/16 02:40 (NS Flush) 2 ml UNSCH PRN IV FLUSH 07/01/16 15:45 (NS Flush) 2 ml BID IV FLUSH 07/01/16 21:00 07/05/16 20:54 (Tylenol) 650 mg Q4H PRN PO 07/01/16 15:45 07/03/16 15:59 (Zofran Inj) 4 mg Q6H PRN IVP 07/01/16 15:45 07/05/16 16:15 (Dulcolax Supp) 10 mg DAILY PRN RECTAL 07/01/16 15:45 (Colace) 100 mg Q12H PO 07/01/16 18:00 07/06/16 05:22 (Narcan Inj) 0.4 mg UNSCH PRN IV 07/01/16 15:45 (Duragesic 75 Mcg Patch.72 Hr) 1 patch Q72H T-DERMAL 07/01/16 18:00 07/04/16 18:40 (Prinivil) 20 mg DAILY PO 07/02/16 09:00 07/06/16 08:14 (Xarelto) 20 mg DAILY PO 07/02/16 09:00 07/06/16 08:14 (Mucinex Er) 600 mg BID PO 07/01/16 21:00 07/06/16 08:14 ([place] 10-325 Mg) 1 tab Q4H PRN PO 07/02/16 13:45 07/06/16 11:17 (Cardizem) 30 mg Q6HR PO 07/03/16 12:00 07/06/16 11:16 (Reglan) 10 mg ACHS PRN PO 07/03/16 10:15 07/04/16 18:39 (Fioricet 325-50-40) 1 tab Q6H PRN PO 07/03/16 19:00 07/05/16 23:14 (Norvasc) 10 mg DAILY PO 07/04/16 15:15 07/06/16 08:14 (Protonix) 40 mg BID PO 07/06/16 09:00 07/06/16 08:14 Vital Signs / I&O Vital Signs Date Time Temp Pulse Resp B/P Pulse Ox O2 Delivery O2 Flow Rate FiO2 07/06/16 12:00 97.8 100 18 138/64 100 07/06/16 08:24 94 21 07/06/16 08:10 Room Air 07/06/16 08:00 97.6 80 18 151/70 91 07/06/16 04:00 97.2 83 20 129/60 95 07/06/16 01:45 75 07/06/16 00:00 97.1 88 18 153/74 95 07/05/16 20:32 96 21 07/05/16 20:03 103 07/05/16 20:00 97.2 91 20 144/69 99 07/05/16 19:45 Room Air 07/05/16 16:00 97.9 95 18 110/55 98 I/O 07/05/16 07/05/16 07/05/16 07/06/16 07/06/16 07/06/16 07:00 15:00 23:00 07:00 15:00 23:00 Intake Total 720 ml 240 ml 100 ml Output Total 725 ml Balance 720 ml 240 ml -625 ml Intake Oral 720 ml 240 ml 100 ml Output Urine Total 725 ml # Voids 3 4 0 # Bowel Movements 0 0 Physical Exam GENERAL: Well-nourished, well-developed patient. SKIN: Warm and dry. HEAD: Normocephalic. EYES: No scleral icterus. No injection or drainage. NECK: Supple, trachea midline. No JVD or lymphadenopathy. CARDIOVASCULAR: Irr Irr without murmurs, gallops, or rubs. RESPIRATORY: Breath sounds equal bilaterally. No accessory muscle use. GASTROINTESTINAL: Abdomen soft, non-tender, nondistended. EXTREMITIES: No cyanosis, or edema. NEUROLOGICAL: Awake, alert, and oriented x 3. Non-focal. Laboratory Laboratory Tests Test 07/06/16 07:30 White Blood Count 4.3 TH/MM3 Red Blood Count 3.89 MIL/MM3 Hemoglobin 11.0 GM/DL Hematocrit 34.3 % Mean Corpuscular Volume 88.2 FL Mean Corpuscular Hemoglobin 28.2 PG Mean Corpuscular Hemoglobin 32.0 % Concent Red Cell Distribution Width 16.8 % Platelet Count 181 TH/MM3 Mean Platelet Volume 8.2 FL Sodium Level 141 MEQ/L Potassium Level 3.9 MEQ/L Chloride Level 103 MEQ/L Carbon Dioxide Level 32.3 MEQ/L Anion Gap 6 MEQ/L Blood Urea Nitrogen 16 MG/DL Creatinine 0.36 MG/DL Estimat Glomerular Filtration 178 ML/MIN Rate Random Glucose 92 MG/DL Calcium Level 8.4 MG/DL Total Bilirubin 0.2 MG/DL Aspartate Amino Transf 7 U/L (AST/SGOT) Alanine Aminotransferase 15 U/L (ALT/SGPT) Alkaline Phosphatase 72 U/L Total Protein 5.3 GM/DL Albumin 2.9 GM/DL Imaging Last Impressions Abdomen/Pelvis CT 07/04/16 0000 Signed Impressions: Service Date/Time: June 17:27 - CONCLUSION: Hepatic cysts, stool throughout the colon and slight ascites with a tiny nonobstructing stone in the left kidney. Regla Bunch MD Chest X-Ray 07/01/16 1309 Signed Impressions: Service Date/Time: Friday, July 01, 2016 13:18 - CONCLUSION: Abnormal chest as described above. Jaspreet Marroquin MD FACR Chest CT 07/01/16 0000 Signed Impressions: Service Date/Time: Friday, July 01, 2016 16:33 - CONCLUSION: 1. There is pleural thickening and consolidation in the left apex which is probably on a chronic basis. I would recommend this patient undergo a CT scan in 6 months to ensure stability. 2. Severe rotatory scoliosis. Uri Marroquin MD Assessment and Plan Problem List: (1) Chest pain Assessment and Plan: Atypical chest pain Atrial Fibrillation with RVR converted to sinus rhythm. Continue OAC with Xarelto Continue Cardizem. Cont home medications for CAD (2) Atrial fibrillation with RVR Problem Qualifiers (1) Chest pain: Qualified Code: R07.9 - Chest pain, unspecified type Zac Membreno MD Jul 06, 2016 12:40
--- NOTE | 2016-07-06 14:34 | HHI.PR ---
Subjective Remarks patient c/o CP 1hr after eating food. Different positions makes it worse. Denied any SOB or palpitations. Denied any N/V. abdominal pain improving. remains afebrile. Objective Vitals Vital Signs Date Time Temp Pulse Resp B/P Pulse Ox O2 Delivery O2 Flow Rate FiO2 07/06/16 12:00 97.8 100 18 138/64 100 07/06/16 08:24 94 21 07/06/16 08:10 Room Air 07/06/16 08:00 97.6 80 18 151/70 91 07/06/16 04:00 97.2 83 20 129/60 95 07/06/16 01:45 75 07/06/16 00:00 97.1 88 18 153/74 95 07/05/16 20:32 96 21 07/05/16 20:03 103 07/05/16 20:00 97.2 91 20 144/69 99 07/05/16 19:45 Room Air 07/05/16 16:00 97.9 95 18 110/55 98 I/O 07/05/16 07/05/16 07/05/16 07/06/16 07/06/16 07/06/16 07:00 15:00 23:00 07:00 15:00 23:00 Intake Total 720 ml 240 ml 100 ml Output Total 725 ml Balance 720 ml 240 ml -625 ml Intake Oral 720 ml 240 ml 100 ml Output Urine Total 725 ml # Voids 3 4 0 # Bowel Movements 0 0 Result Diagram: 07/06/16 0730 07/06/16 0730 Objective Remarks GENERAL: in nad CARDIOVASCULAR: Regular rate and rhythm without murmurs, gallops, or rubs. + TTP on chest that reproduce the pain. RESPIRATORY: Breath sounds equal bilaterally. No accessory muscle use. GASTROINTESTINAL: Abdomen soft, nondistended, positive tenderness to palpation in the mid abdomen area that improved. Negative for any peritoneal signs. Negative for any hepatosplenomegaly. MUSCULOSKELETAL: No cyanosis, or edema. BACK: Nontender without obvious deformity. No CVA tenderness. Medications and IVs Current Medications Metoprolol Tartrate 5 mg 5 mg ONCE ONCE IV PUSH Last administered on 07/01/16t 13:15; Start 07/01/16 at 13:15; Stop 07/01/16 at 13:16; Status DC Sodium Chloride (NS 1000 ml Inj) 1,000 ml @ 999 mls/hr BOLUS ONCE IV Last administered on 07/01/16 13:30; Start 07/01/16 at 13:30; Stop 07/01/16 at 14:30; Status DC Metoprolol Tartrate 50 mg 50 mg ONCE ONCE PO Last administered on 07/01/16 13: 30; Start 07/01/16 at 13:30; Stop 07/01/16 at 13:31; Status DC Ceftriaxone Sodium 1000 mg/ Sodium Chloride 100 ml @ 200 mls/hr Q24H IV Last administered on 07/03/16 18:24; Start 07/01/16 at 17:00; Stop 07/04/16 at 12:11; Status DC Azithromycin 500 mg/Sodium Chloride 250 ml @ 250 mls/hr Q24H IV Last administered on 07/03/16 15:57; Start 07/01/16 at 16:00; Stop 07/04/16 at 12:11; Status DC Sodium Chloride (NS 1000 ml Inj) 1,000 ml @ 75 mls/hr [id number] IV Last administered on 07/06/16 02:40; Start 07/01/16 at 16:00 Sodium Chloride (NS Flush) 2 ml UNSCH PRN IV FLUSH FLUSH AFTER USING IV ACCESS ; Start 07/01/16 at 15:45 Sodium Chloride (NS Flush) 2 ml BID IV FLUSH Last administered on 07/05/16 20: 54; Start 07/01/16 at 21:00 Acetaminophen (Tylenol) 650 mg Q4H PRN PO TEMP > 100.4 Last administered on 07/03 15:59; Start 07/01/16 at 15:45 Ondansetron HCl (Zofran Inj) 4 mg Q6H PRN IVP NAUSEA OR VOMITING Last administered on 07/05/16 16:15; Start 07/01/16 at 15:45 Bisacodyl (Dulcolax Supp) 10 mg DAILY PRN RECTAL CONSTIPATION; Start 07/01/16 at 15:45 Docusate Sodium (Colace) 100 mg Q12H PO Last administered on 07/06/16 05:22; Start 07/01/16 at 18:00 Enoxaparin Sodium (Lovenox Inj) 40 mg Q24H SQ ; Start 07/01/16 at 16:00; Stop 07/01/16 at 16:40; Status DC Naloxone HCl (Narcan Inj) 0.4 mg UNSCH PRN IV SEE LABEL COMMENTS; Start at 15:45 Acetaminophen (Tylenol) 650 mg ONCE ONCE PO Last administered on 07/01/16 16: 00; Start 07/01/16 at 16:00; Stop 07/01/16 at 16:01; Status DC Fentanyl (Duragesic 75 Mcg Patch.72 Hr) 1 patch Q72H T-DERMAL Last administered on 07/04/16 18:40; Start 07/01/16 at 18:00 Lisinopril (Prinivil) 20 mg DAILY PO Last administered on 07/06/16 08:14; Start 07/02/16 at 09:00 Rivaroxaban (Xarelto) 20 mg DAILY PO Last administered on 07/06/16 08:14; Start 07/02/16 at 09:00 Albuterol/ Ipratropium (Duoneb Neb) 1 ampule Q4HR NEB NEB Last administered on 07/05/16 16:23; Start 07/01/16 at 20:00; Stop 07/05/16 at 20:00; Status DC Guaifenesin (Mucinex Er) 600 mg BID PO Last administered on 07/06/16 08:14; Start 07/01/16 at 21:00 Clonidine (Catapres) 0.1 mg ONCE ONCE PO ; Start 07/01/16 at 18:00; Stop at 18:06; Status DC Acetaminophen/ Hydrocodone Bitart ([place] 5-325 Mg) 1 tab Q4H PRN PO PAIN SCALE 4 TO 10 Last administered on 07/02/16 13:35; Start 07/01/16 at 18:15; Stop 07/02/16 at 13:40; Status DC Potassium Chloride 60 meq 60 meq ONCE ONCE PO Last administered on 07/02/16 09 :03; Start 07/02/16 at 08:30; Stop 07/02/16 at 08:40; Status DC Magnesium Sulfate/ Dextrose (Magnesium Sulfate 1 Gm Premix) 100 ml @ 100 mls/ hr Q1H IV Last administered on 07/02/16 10:28; Start 07/02/16 at 08:30; Stop 07/02/16 at 10:29; Status DC Acetaminophen/ Hydrocodone Bitart ([place] 10-325 Mg) 1 tab Q4H PRN PO PAIN SCALE 5 TO 10 Last administered on 07/06/16 11:17; Start 07/02/16 at 13:45 Morphine Sulfate (Morphine Inj) 2 mg ONCE ONCE IV PUSH Last administered on 14:47; Start 07/02/16 at 13:45; Stop 07/02/16 at 13:46; Status DC Diltiazem HCl (Cardizem) 30 mg Q6HR PO Last administered on 07/06/16 11:16; Start 07/03/16 at 12:00 Metoclopramide HCl (Reglan) 10 mg ACHS PRN PO Nausea and vomit Last administered on 07/04/16 18:39; Start 07/03/16 at 10:15 Acetaminophen/ Butalbital/ Caffeine (Fioricet 325-50-40) 1 tab Q6H PRN PO HEADACHE Last administered on 07/05/16 23:14; Start 07/03/16 at 19:00 Pantoprazole Sodium (Protonix Inj) 40 mg Q12HR IV PUSH Last administered on 07/05 20:53; Start 07/04/16 at 12:15; Stop 07/06/16 at 07:47; Status DC Diatrizoate Meglum/ Diatrizoate Sod ( Gastroview Liq) 18 ml ONCE ONCE PO Last administered on 07/04/16 13:31; Start 07/04/16 at 13:00; Stop 07/04/16 at 13: 01; Status DC Amlodipine Besylate (Norvasc) 10 mg DAILY PO Last administered on 07/06/16 08: 14; Start 07/04/16 at 15:15 Iohexol (Omnipaque 350 Inj) 75 ml STK-MED ONCE IV Last administered on 17:39; Start 07/04/16 at 17:39; Stop 07/04/16 at 17:40; Status DC Mineral Oil (Fleet Mineral Oil Enema) 118 ml ONCE ONCE RECTAL Last administered on 07/05/16 12:22; Start 07/05/16 at 12:00; Stop 07/05/16 at 12:01; Status DC Pantoprazole Sodium (Protonix) 40 mg BID PO Last administered on 07/06/16t 08:14 ; Start 07/06/16 at 09:00 Sodium Biphosphate/ Sodium Phosphate (Fleets Enema (Adult)) 133 ml ONCE ONCE RECTAL ; Start 07/06/16 at 14:45; Stop 07/06/16 at 14:46; Status DC A/P Assessment and Plan Abdominal pain -Improving. CT scan showed Hepatic cysts, stool throughout the colon and slight ascites with a tiny nonobstructing stone in the left kidney. -Most likely due to gastritis versus constipation. -Continue her Protonix. -We will need to continue to monitor with serial abdominal exam to assure improvement but drastic improvement. Chest pain -atypical and cp reproducible with palpitations. -maybe due to costochondritis since it is reproducible vs GERD -EKG shows no ST waves changes. -will get troponin. Atrial Fibrillation with RVR converted to sinus rhythm - EKG showed normal sinus rhythm with right axis deviation with LVH, old lateral [place]. Echocardiogram EF 60-65%. Mild elevated troponin secondary to demand ischemia from the age of fibrillation with RVR. -Continue with Cardizem and Xarelto per drop forger helper. Pleural thickening and consolidation in the left apex which is probably on a chronic basis. -Patient has no symptoms of pneumonia or any upper story symptoms. Will discontinue Rocephin and azithromycin and monitor off antibiotics. -Per radiologist recommend CT scan in 6 months to ensure stability. Patient is aware. CAD status post PCI and Stent placement x 2. -Home medication resumed. Hypertension continue home medicines -Patient on Cardizem, lisinopril -Continue with amlodipine. Chronic anticoagulation -On Xarelto DVT prophylaxis Xarelto Discharge Planning patient now c/o CP and abdominal pain improving and she continues to do well. if work negative anticipating dc tomorrow. Marli Coombs MD Jul 06, 2016 14:34
[2016-07-06] MEDS ORDERED: SOD PHOSPHATE/SOD BIPHOSPHATE (ADULT) ENEMA 133ML RECTAL ONE (14:45)
--- NOTE | 2016-07-06 14:46 | EKG ---
Date Performed: 07/06/2016 Time Performed: 09:38:04 PTAGE: 70 years EKG: Sinus rhythm Rightward axis Anterior T wave changes are nonspecific Compared to prior tracing no significant buck ge Borderline ECG PREVIOUS TRACING : 07/01/2016 13.30 DOCTOR: García Anderson Interpretating Date/Time 07/06/2016 14:42:44
[2016-07-06 19:21] LABS: ANION GAP 4 MEQ/L (5-15); BICARBONATE 34.2 MEQ/L (21.0-32.0); BLOOD UREA NITROGEN 17 MG/DL (7-18); CHLORIDE 99 MEQ/L (98-107); GLOMERULAR FILTRATION RATE 134 ML/MIN (>89); SODIUM (NA) 137 MEQ/L (136-145)
[2016-07-06 19:48] LABS: HEMATOCRIT 38.1 % (35.0-46.0); HEMO FLAGS AUTO DIFF; MEAN CELL VOLUME 87.6 FL (80.0-100.0); MEAN CORPUSCULAR HEMOGLOBIN 29.3 PG (27.0-34.0); MEAN CORPUSCULAR HGB CONC 33.4 % (32.0-36.0); PLATELET COUNT 191 TH/MM3 (150-450); RED BLOOD COUNT 4.35 MIL/MM3 (4.00-5.30); RED CELL DISTRIBUTION WIDTH 17.4 % (11.6-17.2); WHITE BLOOD COUNT 5.3 TH/MM3 (4.0-11.0)
[2016-07-06 20:01] LABS: BANDS 6 % (0-6); EOSINOPHILS 3 % (0-4); NEUTROPHIL # MANUAL DIFF 3.6 TH/MM3 (1.8-7.7); POLYS (SEG NEUTROPHILS) 61 % (16-70); WBC DIFF SAMPLE 100
[2016-07-06 20:03] LABS: OVALOCYTES 1+ (NORMAL); PLATELET ESTIMATE SMEAR NORMAL (NORMAL); PLATELET MORPHOLOGY NORMAL (NORMAL)
[2016-07-06 20:04] LABS: KERATOCYTES OCC (NORMAL); TEARDROP RBCS 1+ (NORMAL)
[2016-07-06 20:05] LABS: SCAN/DIFF FINAL DIFF MANUAL
[2016-07-07] VITALS: BP 133/69; PULSE 79; RESP 18; TEMP 97.8; O2SAT 94
[2016-07-07] MEDS: ACETAMIN 325 MG/BUTALBITAL 50 MG/CAFFEINE 40 MG TAB PO PRN ×2 (00:02→06:04)
[2016-07-07] MEDS: DILTIAZEM HCL 30 MG TAB PO SCH ×3 (00:02→12:53)
[2016-07-07 04:00] VITALS: BP 163/72; PULSE 79; RESP 20; TEMP 97; O2SAT 95
[2016-07-07] MEDS: ACETAMINOPHEN/HYDROcodone 325 MG/10 MG TAB PO PRN ×3 (04:04→14:08)
[2016-07-07] MEDS: DOCUSATE SODIUM 100 MG CAP PO SCH (06:04)
[2016-07-07 08:00] VITALS: BP 145/70; PULSE 68; RESP 18; TEMP 97.5; O2SAT 95
[2016-07-07 08:24] VITALS: O2SAT 92
[2016-07-07] MEDS: RIVAROXABAN 20 MG TAB PO SCH (09:25)
[2016-07-07] MEDS: LISINOPRIL 20 MG TAB PO SCH (09:25)
[2016-07-07] MEDS: PANTOPRAZOLE SOD 40 MG DELAYED RELEASE TAB PO SCH (09:25)
[2016-07-07] MEDS: guaiFENesin E.R. 600 MG TAB PO SCH (09:25)
[2016-07-07] MEDS: SODIUM CHLORIDE 0.9% FLUSH 10 ML FLUSH IV FLUSH SCH (09:26)
[2016-07-07] MEDS ORDERED: AMLO10 PO (11:11)
[2016-07-07] MEDS ORDERED: OMEP40CA2 PO (11:11)
[2016-07-07] MEDS ORDERED: DOCU1CAP39 PO (11:11)
[2016-07-07] MEDS ORDERED: CART120C PO (11:11)
--- NOTE | 2016-07-07 11:12 | HHI.DS ---
Discharge Summary Admission Date Jul 01, 2016 at 15:43 Discharge Date: Jul 07, 2016 Admitting Diagnosis A. fib with RVR, pleural effusion (1) Atrial fibrillation with RVR ICD Code: I48.91 Diagnosis: Principal (2) Chest pain ICD Code: R07.9 Diagnosis: Principal (3) Gastritis ICD Code: K29.70 Diagnosis: Principal (4) Constipation ICD Code: K59.00 Diagnosis: Principal Procedures none Brief History - From Admission This is a pleasant 70 y/o Female who came to ER brought in by EMS after the patient complaint of Atypical chest pain, she woke up in the morning because did not improved she called EMS, When they arrived her heart rate was in 190s to 200. They identified her as in SVT and gave her 6 mg of adenosine followed by 12. This slowed the heart rate down to the 160 and at this point The rhythm showed Atrial Fibrillation with RVR given Cardizem 20 mg IV the patient continue with heart rate in 150s associated Anxiety and distressed, Complained of her chest hurting on the left side with no radiation. has CAD status post PCI and Stent placement x 2, history of Atrial Fibrillation, Her last stent was about 6-7 years ago. She is on Xarelto. as per patient she started with Chest pain when she woke up the pain was Precordial pain, 9/10 in intensity, radiated to the posterior area of the head, lasted for 5 to 10 minutes but did not improved totally. at this time asymptomatic. seen in the presence of female nurse in Emergency Room. CBC/BMP: 07/06/16 1810 07/06/16 181 Significant Findings Laboratory Tests Test 07/05/16 07/06/16 07/06/16 07/06/16 06:58 07:30 11:55 18:10 Platelet Count 140 TH/MM3 (150-450) Carbon Dioxide Level 32.8 MEQ/L 32.3 MEQ/L 34.2 MEQ/L (21.0-32.0) (21.0-32.0) (21.0-32.0) Creatinine 0.48 MG/DL 0.36 MG/DL 0.46 MG/DL (0.50-1.00) (0.50-1.00) (0.50-1.00) Aspartate Amino Transf 11 U/L (15-37) 7 U/L (15-37) (AST/SGOT) Total Protein 5.8 GM/DL 5.3 GM/DL (6.4-8.2) (6.4-8.2) Albumin 3.2 GM/DL 2.9 GM/DL (3.4-5.0) (3.4-5.0) Red Blood Count 3.89 MIL/MM3 (4.00-5.30) Hemoglobin 11.0 GM/DL (11.6-15.3) Hematocrit 34.3 % (35.0-46.0) Calcium Level 8.4 MG/DL (8.5-10.1) Troponin I LESS THAN 0.02 LESS THAN 0.02 NG/ML NG/ML (0.02-0.05) (0.02-0.05) Red Cell Distribution Width 17.4 % (11.6-17.2) Monocytes % 11 % (0-8) Tear Drop Cells 1+ (NORMAL) Ovalocytes 1+ (NORMAL) Keratocytes OCC (NORMAL) Anion Gap 4 MEQ/L (5-15) Imaging Last Impressions Abdomen/Pelvis CT 07/04/16 0000 Signed Impressions: Service Date/Time: June 17:27 - CONCLUSION: Hepatic cysts, stool throughout the colon and slight ascites with a tiny nonobstructing stone in the left kidney. Sanjay. Alexandre Bunch MD Chest X-Ray 07/01/16 1309 Signed Impressions: Service Date/Time: Friday, July 01, 2016 13:18 - CONCLUSION: Abnormal chest as described above. Jaspreet Marroquin MD FACR Chest CT 07/01/16 0000 Signed Impressions: Service Date/Time: Friday, July 01, 2016 16:33 - CONCLUSION: 1. There is pleural thickening and consolidation in the left apex which is probably on a chronic basis. I would recommend this patient undergo a CT scan in 6 months to ensure stability. 2. Severe rotatory scoliosis. Uri Marroquin MD PE at Discharge GENERAL: in nad CARDIOVASCULAR: Regular rate and rhythm without murmurs, gallops, or rubs. + TTP mild on chest that reproduce the pain. RESPIRATORY: Breath sounds equal bilaterally. No accessory muscle use. GASTROINTESTINAL: Abdomen soft, nondistended, nontender. Negative for any peritoneal signs. Negative for any hepatosplenomegaly. MUSCULOSKELETAL: No cyanosis, or edema. BACK: Nontender without obvious deformity. No CVA tenderness. Pt update on day of discharge Follow-up for abdominal pain and chest pain. No acute events on telemetry. Patient denies any abdominal pain or chest pain. She denies any nausea or vomiting. Patient is tolerating PO intake. Patient had a bowel movement. Patient stated that she is ready to go home but she is concerned that she doesn't have a ride home since she lives in [facility] which is [place] miles away. Hospital Course Abdominal pain -About 2 days into patient's hospital course she complained of mid abdominal pain. -CT scan obtained which showed Hepatic cysts, stool throughout the colon and slight ascites with a tiny nonobstructing stone in the left kidney. -Most likely due to gastritis versus constipation. -Patient was put on Protonix and her constipation was treated in which symptoms resolved. Chest pain -atypical and cp reproducible with palpitations. -maybe due to costochondritis since it is reproducible vs GERD -EKG shows no ST waves changes. -Troponin also obtained which was negative. -patient also had an ECHO which was relatively normal with EF of 60% Atrial Fibrillation with RVR converted to sinus rhythm -[employer] was consulted. - EKG showed normal sinus rhythm with right axis deviation with LVH, old lateral [place]. Echocardiogram EF 60-65%. Mild elevated troponin secondary to demand ischemia from the age of fibrillation with RVR. 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 Pleural thickening and consolidation in the left apex which is probably on a chronic basis. -Patient has no symptoms of pneumonia or any upper story symptoms. Will discontinue Rocephin and azithromycin and monitor off antibiotics. Patient did well off of antibiotics. -Per radiologist recommend CT scan in 6 months to ensure stability. Patient is aware. CAD status post PCI and Stent placement x 2. -Home medication resumed. Hypertension continue home medicines -Patient on Cardizem, lisinopril -She was started on amlodipine while hospitalized which help with her hypertension. Chronic anticoagulation -On Xarelto Pt Condition on Discharge: Good Discharge Disposition: Discharge Home Discharge Time: > 30 minutes Discharge Instructions DIET: Follow Instructions for: Heart Healthy Diet Activities you can perform: Regular-No Restrictions Follow up Referrals: Cardiology - 2 Weeks PCP Follow-up - 1 Week New Medications: Diltiazem ER 24 HR (Cartia Xt) 120 Mg Caper 120 MG PO DAILY atrial fibrillation #30 Ref 0 CAP Omeprazole (Omeprazole) 40 Mg Cap 40 MG PO DAILY gastritis #30 Ref 0 CAP Amlodipine (Norvasc) 10 Mg Tab 10 MG PO DAILY hypertension #30 Ref 0 TAB Docusate Sodium (Dok) 100 Mg Cap 100 MG PO Q12H constipation #30 Ref 0 CAP Continued Medications: Fentanyl Patch 72 HR (Duragesic Patch 72 HR) 75 Mcg/Hr Patch 75 MCG T-DERMAL Q48HR Remove old patch when new one placed. Pain Management #10 Ref 0 PATCH Hydrocodone-Acetaminophen (Rippey) 5-325 mg Tab 1 TAB PO TID Pain Management Ref 0 TAB Lisinopril (Lisinopril) 20 Mg Tab 20 MG PO DAILY #30 Ref 0 TAB Rivaroxaban (Xarelto) 20 Mg Tab 20 MG PO DAILY Blood Clot Prevention Ref 0 TAB Marli Coombs MD Jul 07, 2016 11:12
--- NOTE | 2016-07-07 11:12 | HHI.DCPOC ---
Discharge Care Plan Diagnosis: (1) Atrial fibrillation with RVR (2) Chest pain (3) Constipation (4) Gastritis Goals to Promote Your Health * To prevent worsening of your condition and complications * To maintain your health at the optimal level Directions to Meet Your Goals Take your medications as prescribed Follow your dietary instruction Follow activity as directed Keep your appointments as scheduled Take your immunizations and boosters as scheduled If your symptoms worsen call your PCP, if no PCP go to Urgent Care Center or Emergency Room Smoking is Dangerous to Your Health. Avoid second hand smoke Call the 24-hour hour crisis hotline for domestic abuse at Marli Coombs MD Jul 07, 2016 11:12
[2016-07-07 12:00] VITALS: BP 131/74; PULSE 79; RESP 18; TEMP 98.4; O2SAT 97
== END 2016-07-07 15:55 | disposition home or self-care (01) | DRG 308 ==
LOC: NEPC 13:01 → NEDA 15:43 → N04B 17:53
PROVIDERS: ADMIT Family Medicine; ATTEND Family Medicine
DX: I48.91 Unspecified atrial fibrillation (principal); J18.9 Pneumonia, unspecified organism; J90 Pleural effusion, not elsewhere classified; I24.8 Other forms of acute ischemic heart disease; K76.89 Other specified diseases of liver; J44.0 Chronic obstructive pulmonary disease with (acute) lower respiratory infection; I47.1 Supraventricular tachycardia; I25.10 Atherosclerotic heart disease of native coronary artery without angina pectoris; Z95.5 Presence of coronary angioplasty implant and graft; I10 Essential (primary) hypertension; Z79.01 Long term (current) use of anticoagulants; M19.90 Unspecified osteoarthritis, unspecified site; K29.70 Gastritis, unspecified, without bleeding; K59.00 Constipation, unspecified; G43.909 Migraine, unspecified, not intractable, without status migrainosus; I25.2 Old myocardial infarction; M41.9 Scoliosis, unspecified; Z90.710 Acquired absence of both cervix and uterus
CPT/HCPCS: 71010; 71250; 74177; 80048; 80053; 80076; 82550; 82552; 83690; 83735; 84484; 85007; 85025; 85027; 85610; 85730; 93005; 93306; 94150; 94640; 94664; 96361; 96374; C9113; J0456; J0696; J2270; J2405; J3475; J7030; J7050; Q9963; Q9967